=== PATIENT | male | born 1935 | race Hispanic/Latino ===

== ENCOUNTER 2017-12-05 08:13 | Outpatient (CLI) | payer MEDICARE, BC | END 2017-12-05 08:14 | disposition home or self-care (01) | LOC: BICMAMMO 08:13 | PROVIDERS: ATTEND Family Medicine | DX: N64.4 Mastodynia (principal) | CPT/HCPCS: 77066; G0279 ==

== ENCOUNTER 2019-07-23 08:50 | Outpatient (CLI) | payer MEDICARE, BC ==
--- NOTE | 2019-07-23 09:24 | ULT ---
US Renal Bilateral STANDARD HISTORY: Renal failure FINDINGS: The right kidney measures 11.1 cm in length and the left kidney measures 10.4 cm in length. No hydronephrosis is seen on either side. There is a 1 cm cyst in the left kidney. The urinary bladder is not satisfactory distended. IMPRESSION: Left renal cyst.
== END 2019-07-23 08:51 | disposition home or self-care (01) ==
LOC: BICULT 08:50
PROVIDERS: ATTEND Internal Medicine Nephrology
DX: N18.4 Chronic kidney disease, stage 4 (severe) (principal); N28.1 Cyst of kidney, acquired
CPT/HCPCS: 76770

== ENCOUNTER 2020-01-16 14:28 | Emergency (ER) | payer MEDICARE, BC ==
[2020-01-16] MEDS ORDERED: Adacel (T-DAP) 0.5 ML SYRINGE ONE (15:08)
== END 2020-01-16 15:33 | disposition home or self-care (01) ==
LOC: ERS 14:28
DX: S51.811A Laceration without foreign body of right forearm, initial encounter (principal); E11.9 Type 2 diabetes mellitus without complications; E78.5 Hyperlipidemia, unspecified; E78.00 Pure hypercholesterolemia, unspecified; I10 Essential (primary) hypertension; Z87.891 Personal history of nicotine dependence; Z79.899 Other long term (current) drug therapy; W01.0XXA Fall on same level from slipping, tripping and stumbling without subsequent striking against object, initial encounter
CPT/HCPCS: 90715; 99282

== ENCOUNTER 2020-02-02 09:14 | Observation (INO) | payer MEDICARE, BC ==
[2020-02-02 10:09] LABS: #Lymphocytes 1.2 thou/uL (1.20-3.40); #Monocytes 0.5 thou/uL (0.11-0.59); #Neutrophils 3.8 thou/uL (1.40-6.50); %Basophils 0.2 % (0.0-1.0); %Eosinophils 0.6 % (0.0-10.0); %Lymphocytes 21.7 % (21.0-51.0); %Monocytes 8.7 % (0.0-10.0); %Neutrophils 68.9 % (42.0-75.0); Hemoglobin 8.2 g/dL (14.0-18.0); Mean Corpuscular HGB CONC 35.2 g/dL (32.0-36.0); Mean Corpuscular Hemoglobin 31.1 pg (27.0-31.0); Mean Corpuscular Volume 88.5 fL (78.0-98.0); Mean Platelet Volume 7.6 fL (7.4-10.4); Platelet Count 144 thou/uL (130-400); RBC Distribution Width 11.9 % (11.5-14.5); Red Blood Cell (RBC) Count 2.63 mill/uL (4.70-6.10); White Blood Cell (WBC) Count 5.5 thou/uL (4.8-10.8)
--- NOTE | 2020-02-02 10:09 | RAD ---
PORTABLE CHEST: HISTORY: Weakness. COMPARISON: 12/06/2016. FINDINGS: The lungs are clear. No infiltrate or vascular congestion. Heart size is normal. Scattered calcifi ed granuloma again noted. Osseous structures unremarkable. IMPRESSION: No acute process. No interval change from prior exam. POS: AGW
[2020-02-02 10:31] LABS: Albumin 3.3 g/dL (3.4-4.8); Anion Gap 15 mmol/L (10-20); BUN (Urea Nitrogen) 35 mg/dL (8.4-25.7); Bilirubin, Total 0.5 mg/dL (0.2-1.2); Calc. Creatinine Clearance 0 mL/min (70-130); Calcium 7.2 mg/dL (7.8-10.44); Carbon Dioxide 16 mmol/L (23-31); Chloride 108 mmol/L (98-107); Estimated GFR-MDRD 30; Globulin 4.1 g/dL (2.4-3.5); Glucose 131 mg/dL (83-110); Protein, Total 7.4 g/dL (5.8-8.1); Sodium 136 mmol/L (136-145)
[2020-02-02 10:31] LABS: Bilirubin Negative (Negative); Blood, Urine 2+ (Negative); Clarity Clear (Clear); Glucose, Urine (Dipstick) Normal (Negative); Leukocyte 25 Leu/uL (Negative); Nitrite Negative (Negative); Protein, Urine (Dipstick) 200 mg/dL (Neg-Trace); Squamous Epithelial 0-3 HPF (0-3); Urobilinogen Normal mg/dL (Less than 2)
[2020-02-02 10:32] LABS: ALT (SGPT) 27 U/L (8-55); AST (SGOT) 20 U/L (5-34); Alkaline Phosphatase 65 U/L (40-110); CK (CPK) 57 U/L (30-200)
[2020-02-02 10:43] LABS: Bacteria/HPF 3+ HPF (None Seen)
[2020-02-02] MEDS ORDERED: cefTRIAXone\\ROCEPHIN 1 GM VIAL ONE (11:05)
[2020-02-02] MEDS ORDERED: Potassium Chloride 40 MEQ in Sodium Chloride 0.9% 250 ML 250 ML IVPB SCH (11:15)
[2020-02-02] MEDS ORDERED: Bisacodyl 5 MG TAB PO PRN (11:34)
[2020-02-02] MEDS ORDERED: Acetaminophen 325 MG TAB PO PRN (11:34)
[2020-02-02] MEDS ORDERED: Senokot S 8.6-50 MG TAB PO PRN (11:34)
[2020-02-02] MEDS ORDERED: Ondansetron PF 4 MG/2 ML Vial IVP PRN (11:34)
[2020-02-02] MEDS ORDERED: cefTRIAXone\\ROCEPHIN 1 GM in Sodium Chloride 0.9% 100 ML IVPB SCH (11:45)
[2020-02-02 14:05] VITALS: BMI 19.0
[2020-02-02] MEDS ORDERED: Potassium Citrate 10 MEQ TAB PO SCH (16:00)
[2020-02-02] MEDS ORDERED: Calcium Gluc 4.6 MEQ/10 ML (100 MG/ML) SLOW IVP ONE (16:00)
[2020-02-02 16:08] LABS: Troponin I 0.027 ng/mL (< 0.028)
[2020-02-02] MEDS ORDERED: Calcium Gluconate 4.6 MEQ in Sodium Chloride 0.9% 100 ML IVPB SCH (16:15)
--- NOTE | 2020-02-02 16:26 | HP ---
CHIEF COMPLAINT: Weakness. HISTORY OF PRESENT ILLNESS: An 84-year-old male with history of diabetes, hypertension, hyperlipidemia, had one week of weakness and shortness of breath. He usually walks around with a cane at home and that ambulation become more limited now. is at bedside. She is able to give me some information. The patient is alert, oriented, but appears quite weak. Initial workup here, troponin negative , chest x-ray negative, no temperature, no elevated white count. However, urine shows signs of infection. REVIEW OF SYSTEMS: Complete review of systems not obtainable directly from the patient. However, states that he did not have any fever, productive cough , or complain of chest pain. No risk for exposure to COVID. Pretty much they stayed at home. No nausea, vomiting, abdominal pain, constipation, diarrhea, hematuria, dysuria. No headache or blurriness. ALLERGIES: HE HAS NO KNOWN DRUG ALLERGY. MEDICAL HISTORY: Diabetes, hypertension, hyperlipidemia. History of diverticulitis and prostatitis. SURGICAL HISTORY: Polypectomy in 2012. FAMILY HISTORY: Diabetes and father at the age 79. SOCIAL HISTORY: Quit smoking 20 years ago. Occasional social drinks. Lives with his . He has a son and two daughters. MEDICATIONS: 1. Januvia 100 mg daily. 2. Calcitriol 0.25 mcg daily. 3. Lovastatin 1 tablet daily, unknown dose. PHYSICAL EXAMINATION: VITAL SIGNS: Temperature 98.7, pulse 56, blood pressure 135/78. GENERAL: The patient looks quite fatigued, but alert and oriented, does not appear to be toxic. HEENT: Pupils equal, round, and reactive to light. Anicteric. Mucous membranes moist. CARDIOVASCULAR: Regular rate and rhythm without murmurs, rubs, or gallops. LUNGS: Clear to auscultation bilaterally without wheezing, rales, or rhonchi. ABDOMEN: Soft, nontender, nondistended. Good bowel sounds. EXTREMITIES: Without any pitting edema. NEUROLOGIC: No focal deficits. LABORATORY DATA: CBC, hemoglobin 8.2, otherwise rest of the panel okay. BMP panel with potassium of 3.0, creatinine of 2.12. Liver function test in the normal range. IMPRESSION AND PLAN: An 84-year-old male with history of diabetes and hypertension, presenting with the followin. Urinary tract infection without sepsis. 2. Hypokalemia. 3. Chronic kidney disease stage 4 with a baseline creatinine of 2.05 to 2.12. 4. Hypocalcemia. 5. Debilitation. The patient is admitted for above. We will follow the blood and urine culture. Empiric ceftriaxone and follow the culture. Potassium has been replaced. We will also check magnesium level. CKD3 Hypocalcemia and the patient has normocytic anemia and his alkaline phosphatase is in the normal range. His TSH is in the normal range. We will supplement the calcium for now. We will also check his PTH and vitamin D level. Debilitation and weakness due to urinary tract infection and age. Physical therapy consult. The patient lives at home. Based on physical therapy recommendation, home health versus rehab upon discharge. Job ID: [id number] [facility]ENTER[facility]
[2020-02-02] MEDS ORDERED: Magnesium Sulfate 3 GM in Sodium Chloride 0.9% 100 ML IVPB SCH (17:15)
[2020-02-02] MEDS: NS 0.9% w/ 40 MEQ KCL 100 ML IV SCH ×5 (17:27→21:05)
[2020-02-02] MEDS: Atorvastatin Calcium 10 MG TAB PO SCH (21:19)
[2020-02-02] MEDS ORDERED: ALPRAZolam 0.25 MG TAB PO SCH (21:30)
[2020-02-02] MEDS: NS 0.9% w/ 40 MEQ KCL 1,000 ML IV SCH (21:43)
[2020-02-03] MEDS: NS 0.9% w/ 40 MEQ KCL 1,000 ML IV SCH (03:47)
[2020-02-03 04:16] LABS: #Lymphocytes 0.9 thou/uL (1.20-3.40); #Monocytes 0.4 thou/uL (0.11-0.59); #Neutrophils 2.3 thou/uL (1.40-6.50); %Basophils 0.4 % (0.0-1.0); %Eosinophils 1.2 % (0.0-10.0); %Lymphocytes 25.3 % (21.0-51.0); %Monocytes 11.5 % (0.0-10.0); %Neutrophils 61.7 % (42.0-75.0); Hemoglobin 6.6 g/dL (14.0-18.0); Mean Corpuscular HGB CONC 33.5 g/dL (32.0-36.0); Mean Corpuscular Hemoglobin 30.1 pg (27.0-31.0); Mean Corpuscular Volume 89.9 fL (78.0-98.0); Mean Platelet Volume 7.1 fL (7.4-10.4); Platelet Count 111 thou/uL (130-400); RBC Distribution Width 11.9 % (11.5-14.5); White Blood Cell (WBC) Count 3.7 thou/uL (4.8-10.8)
[2020-02-03 04:32] LABS: Anion Gap 12 mmol/L (10-20); BUN (Urea Nitrogen) 30 mg/dL (8.4-25.7); Calc. Creatinine Clearance 24 mL/min (70-130); Calcium 6.9 mg/dL (7.8-10.44); Carbon Dioxide 14 mmol/L (23-31); Chloride 111 mmol/L (98-107); Estimated GFR-MDRD 32; Glucose 187 mg/dL (83-110); Potassium 3.9 mmol/L (3.5-5.1); Sodium 133 mmol/L (136-145)
[2020-02-03] MEDS: Calcitriol 0.25 MCG CAP PO SCH (08:58)
[2020-02-03] MEDS: Alogliptin 6.25 MG TAB PO SCH (08:58)
[2020-02-03] MEDS ORDERED: Pioglitazone HCl 15 MG TAB PO SCH (09:00)
[2020-02-03] MEDS ORDERED: Lisinopril 5 MG TAB PO SCH (09:00)
[2020-02-03 09:04] LABS: Hemoglobin 7.5 g/dL (14.0-18.0)
--- NOTE | 2020-02-03 10:34 | EKG ---
Test Reason : Blood Pressure : / mmHG Vent. Rate : 069 BPM Atrial Rate : 069 BPM P-R Int : 160 ms QRS Dur : 082 ms QT Int : 432 ms P-R-T Axes : 079 068 050 degrees QTc Int : 462 ms Normal sinus rhythm Normal ECG Confirmed by CESIA AYOUB DO ([id number]), index editor MICHELE GAINES ([id number] on 02/03/2020 10:34:26 AM Referred By: Confirmed By:CESIA AYOUB DO
[2020-02-03] MEDS ORDERED: cefTRIAXone\\ROCEPHIN 1 GM in Sodium Chloride 0.9% 100 ML IVPB SCH (12:00)
--- NOTE | 2020-02-03 13:07 | PDOC.HOSPP ---
- Subjective Encounter Date: 02/03/20 Encounter Time: 10:00 Subjective: pt still looks fatigued, getting blood for low Hgb, FOBT neg., no bleed o/n. renal abnormalities. prefers to take him home, when able, no rehab but wants home PT. - Objective Vital Signs & Weight: Vital Signs (12 hours) Temp Pulse Pulse Resp BP BP Pulse Ox 02/03/20 11:41 97.9 F 58 L 58 L 18 164/74 H 164/74 H 99 02/03/20 11:09 65 02/03/20 09:03 97.7 F 60 18 155/72 H 100 02/03/20 08:40 97.7 F 61 18 158/74 H 100 02/03/20 07:53 97.7 F 65 20 163/73 H 100 02/03/20 03:44 98.3 F 58 L 18 165/80 H 95 Weight Weight 132 lb 8 oz I&O: 02/02/20 02/03/20 02/04/20 06:59 06:59 06:59 Intake Total 2246 350 Output Total 1500 Balance 746 350 Result Diagrams: 02/03/20 08:55 02/03/20 03:48 Additional Labs: Accuchecks 02/03/20 10:15 POC Glucose 149 H Hospitalist ROS - Medication Medications: Active Medications Generic Name Dose Route Start Last Admin Trade Name Freq PRN Reason Stop Dose Admin Alogliptin Benzoate 6.25 mg 02/03/20 09:00 02/03/20 08:58 Alogliptin PO 6.25 mg DAILY HEYDI Administration Atorvastatin Calcium 10 mg 02/02/20 21:00 02/02/20 21:19 Lipitor PO 10 mg HS HEYDI Administration Calcitriol 0.25 mcg 02/03/20 09:00 02/03/20 08:58 Rocaltrol PO 0.25 mcg DAILY HEYDI Administration Ceftriaxone Sodium 1 gm/ 100 mls @ 200 mls/hr 02/03/20 12:00 02/03/20 11:50 Sodium Chloride IVPB 100 mls 1200 HEYDI Administration Potassium Chloride/Sodium Chloride 1,000 mls @ 100 mls/hr 02/02/20 21:45 03:47 Ns 0.9% W/ 40 Meq Kcl IV 1,000 mls .Q10H HEYDI Administration Lisinopril 5 mg 02/03/20 09:00 02/03/20 11:09 Zestril PO Not Given DAILY HEYDI - Exam General Appearance: awake alert, ill appearing Eye: PERRL ENT: normocephalic atraumatic Neck: supple Heart: RRR Respiratory: CTAB, normal chest expansion, no tachypnea Gastrointestinal: normal bowel sounds Neurological: no focal deficits Psychiatric: A&O x 3 Hosp A/P - Plan UTI - urine and bl cx neg so far -cw ctx Hypokalemia -resolved HyperPTH Hypocalcemia Vitamin D def'y CKD 4 -- supplement ca/vit D --Dr. Melendez follows him as outpt. --renal c/s Anemia of kidney dz -s/p 1 unit prbc Mild hyponatremia --getting blood products --still low in am, will address Debilitation -PT/OT - prefers to take him home, when able, no rehab but wants home PT. -CM c/s placed.
[2020-02-03 15:00] LABS: Hemoglobin 8.6 g/dL (14.0-18.0)
[2020-02-03] MEDS: Calcium Carbonate 500 MG TAB PO SCH (17:40)
[2020-02-03] MEDS ORDERED: Dextrose 5% in Water 1,000 ML IV PRN (18:04)
[2020-02-03] MEDS ORDERED: Insulin Regular 300 UNITS/3 ML VIAL SC PRN (18:04)
[2020-02-03] MEDS ORDERED: Dextrose 50% Abboject 50 ML SYRINGE IVP PRN (18:04)
[2020-02-03] MEDS: Atorvastatin Calcium 10 MG TAB PO SCH (20:25)
[2020-02-04 07:44] VITALS: BP 166/77; TEMP 98.1
[2020-02-04] MEDS: Calcitriol 0.25 MCG CAP PO SCH (08:10)
[2020-02-04] MEDS: Calcium Carbonate 500 MG TAB PO SCH (08:10)
[2020-02-04] MEDS: Alogliptin 6.25 MG TAB PO SCH (08:10)
--- NOTE | 2020-02-04 09:06 | CON ---
DATE OF CONSULTATION: HISTORY OF PRESENT ILLNESS: Mr. Rod is an 84-year-old male with history of chronic renal failure from diabetic nephropathy and he was admitted for generalized malaise. He was diagnosed to have UTI and has currently been started on IV antibiotics. This morning, he is feeling a little better. We are being consulted for his chronic renal failure. The patient was last encountered [facility]. At that time, his creatinine was noted at 2.68. His baseline creatinine is about 2.1. He was encouraged at that time to increase his fluid intake. REVIEW OF SYSTEMS: Positive for generalized malaise, history of decreased visual acuity, occasional dysuria. No chest pain, no shortness of breath. Appetite and energy level are excellent. No headache. No diplopia. No fever or chills. No abdominal pain. No hematochezia. No melena. No hematemesis. Positive for joint pains. No new skin rash. MEDICATIONS: The patient is currently on the following medications. He was on lisinopril, but this was discontinued. In addition, he is on Lipitor at 10 mg at bedtime, alogliptin 6.25 mg p.o. daily, calcitriol 0.25 mcg tablet daily, Os-Александр 500 mg p.o. b.i.d., ceftriaxone 1 g IV daily, Humulin R sliding scale. PAST MEDICAL HISTORY: 1. 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 2. Type 2 diabetes mellitus, status post prostatitis. 3. Recent diagnosis of UTI. 4. Hyperlipidemia. 5. Status post diverticulitis. PAST SURGICAL HISTORY: Status post right breast excision-benign findings, status post bilateral cataract surgery, status post appendectomy, status post colonoscopy. SOCIAL HISTORY: The patient is . Lives in [place], one child. Retired [employer] worker. No formal schooling. Alcohol, none. No IV drug abuse. No blood transfusions. Smoked for at least 25 years, 1/2 pack a day, but currently not smoking. Sedentary lifestyle. ALLERGIES: NONE. TRAUMA: None. IMMUNIZATIONS: Up to date. HOSPITALIZATION: Please see past medical history. FAMILY HISTORY: No family history of ESRD. PHYSICAL EXAMINATION: VITAL SIGNS: Blood pressure is noted at 166/77, heart rate 64, respiratory rate is 17, temperature 98.1, O2 saturation 99%. GENERAL: Noted to be awake, alert, comfortable, not in overt distress. SKIN: Adequate turgor. HEENT: He has slightly pale conjunctivae. Anicteric sclerae. NECK: No neck mass. No carotid bruits. No JVD. CHEST: No deformities. LUNGS: Clear breath sounds. HEART: Normal sinus rhythm. No murmur. No gallops. No rubs. ABDOMEN: Globular, soft, nontender, no masses. EXTREMITIES: No edema, no deformities. LABORATORY DATA: February 03, 2020, , hemoglobin is 8.6. February 02, 2020, hemoglobin was 8.2. Sodium 133, potassium 3.9, chloride 111, carbon dioxide 14, BUN 30, creatinine 2.01, calcium 6.9, magnesium 1.6. Chest x-ray of February 02, 2020, shows no acute process. ASSESSMENT AND PLAN: 1. Chronic renal failure. This is secondary to diabetic nephropathy. His creatinine compared to several days ago has slightly improved from 2.25 to most recent value of 2.01. He may have a prerenal component. He was noted to be anemic and was ordered to have a blood transfusion. The blood transfusion may have improved the patient's renal function. In addition, his lisinopril has been discontinued as well as he was given IV volume repletion. The higher creatinine may be superimposed hemodynamically-mediated renal dysfunction-acute kidney injury on top of his chronic renal failure from diabetic nephropathy. 2. Anemia, currently status post blood transfusion, clinically improved. 3. Urinary tract infection, currently on IV antibiotics. Once the UTI is much improved, consider restarting this patient on Epogen. 4. There is no indication for any emergent dialysis with this patient. Thank you for the consult. We will continue to follow. Job ID: [id number]
--- NOTE | 2020-02-04 13:04 | DIS ---
DATE OF ADMISSION: 02/02/2020 DATE OF DISCHARGE: 02/04/2020 DISCHARGE DIAGNOSES: 1. Urinary tract infection. Urine culture negative. 2. Hypokalemia that has resolved. 3. Hyperparathyroidism. 4. Hypocalcemia. 5. Vitamin D deficiency. 6. Chronic kidney disease, stage 4. 7. Anemia of kidney disease, status post 1 unit RBC transfusion. 8. Mild hyponatremia. 9. Debilitation. 10. Hypertension DISCHARGE MEDICATIONS: Continue with his original home medications of; 1. Sodium bicarbonate 650 mg t.i.d. 2. Januvia 100 mg daily. 3. Lovastatin 40 mg daily. 4. Calcitriol 0.25 mcg p.o. daily. New prescriptions are; 1. Calcium carbonate 500 mg twice a day. 2. Keflex 250 mg twice a day for 5 days. 3. Norvasc 5 mg b.i.d. PHYSICAL EXAMINATION: VITAL SIGNS: On the day of discharge, temperature 98.1, pulse 64, blood pressure 166/77, saturating 99% on room air. GENERAL: The patient is alert and oriented. He is at his baseline. He does look debilitated. CARDIOVASCULAR: Regular rate and rhythm without murmurs, rubs, or gallops. LUNGS: Clear to auscultation bilaterally without wheezing, rales, or rhonchi. ABDOMEN: Soft, nontender, nondistended. Good bowel sounds. EXTREMITIES: No pitting edema. . at bedside. Discharge plan discussed and they are quite anxious to go home today. 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 HOSPITAL COURSE: An 84-year-old male, presented with urinary tract infection, hypokalemia, and quite debilitated. His hemoglobin initially was 8.2, however, it has dropped. Occult blood test was negative. He did receive a unit of blood and his current hemoglobin is 8.6 on the day of discharge. Urine culture did not grow any organisms. Blood culture is also negative. Again, occult blood test is negative. This drop in hemoglobin may be due to dilutional as he has received IV fluids. TSH is in the normal range; however, his PTH is 699.2 and his vitamin D also on the low side at 7.4 as well as calcium 6.9. The patient is on calcitriol. Because of these abnormalities, I have consulted Dr. Werner, who has been following him as outpatient. The patient had an appointment today at around 10:40, he will reschedule to go and see him. Dr. Werner did visit him today on the day of discharge and he is ok to start him on supplements and expect the patient to follow up. The patient's blood pressure is little elevated. P.r.n. and on the day of discharge, low-dose Norvasc has been given. The patient is clinically stable to go home today. Though, he would benefit with a transient rehab, both the patient and prefer to go home. DISCHARGE INSTRUCTIONS: Activity, as tolerated. Renal diet. Follow up with PCP in 1 week. Follow up with Dr. Werner in 1 to 2 weeks. Discharge time took over 35 minutes. Job ID: [id number] MTDD
== END 2020-02-04 10:49 | disposition home or self-care (01) ==
LOC: ERS 09:14 → 2NO 11:40
PROVIDERS: ADMIT Internal Medicine; ATTEND Internal Medicine
DX: N39.0 Urinary tract infection, site not specified (principal); E87.6 Hypokalemia; E21.3 Hyperparathyroidism, unspecified; E55.9 Vitamin D deficiency, unspecified; I12.9 Hypertensive chronic kidney disease with stage 1 through stage 4 chronic kidney disease, or unspecified chronic kidney disease; E11.21 Type 2 diabetes mellitus with diabetic nephropathy; E11.22 Type 2 diabetes mellitus with diabetic chronic kidney disease; N18.4 Chronic kidney disease, stage 4 (severe); D63.1 Anemia in chronic kidney disease; E87.1 Hypo-osmolality and hyponatremia; E78.5 Hyperlipidemia, unspecified; E78.00 Pure hypercholesterolemia, unspecified; R53.81 Other malaise; Z87.891 Personal history of nicotine dependence; Z79.84 Long term (current) use of oral hypoglycemic drugs; Z79.899 Other long term (current) drug therapy
CPT/HCPCS: 36430; 71045; 80048; 82274; 82306; 82550; 82962 ×2; 83735 ×2; 83970; 84484 ×2; 85014; 85018; 85025; 86850; 86900; 86901; 86920; 87040; 87086; 93005; 96365; 96368; 97116; 97139 ×3; 99285; P9016; 36415; 36416; 80053; 81003; 81015; 84443; 96366; 96367; G0378; J0696; J1815; J3475; J3480; J3490; J7050

== ENCOUNTER 2020-03-27 17:41 | Inpatient (IN) | payer MEDICARE, BC, OTHER ==
[2020-03-27 18:17] LABS: #Lymphocytes 0.2 thou/uL (1.20-3.40); %Basophils 0.3 % (0.0-1.0); %Eosinophils 0.8 % (0.0-10.0); %Lymphocytes 4.7 % (21.0-51.0); %Monocytes 1.3 % (0.0-10.0); Mean Corpuscular HGB CONC 32.7 g/dL (32.0-36.0); Mean Corpuscular Hemoglobin 30.2 pg (27.0-31.0); Mean Corpuscular Volume 92.5 fL (78.0-98.0); Mean Platelet Volume 8.6 fL (7.4-10.4); Platelet Count 118 thou/uL (130-400); RBC Distribution Width 12.1 % (11.5-14.5); Red Blood Cell (RBC) Count 2.31 mill/uL (4.70-6.10); White Blood Cell (WBC) Count 3.2 thou/uL (4.8-10.8)
--- NOTE | 2020-03-27 18:31 | RAD ---
Chest one view HISTORY: Hyperglycemia. Weakness. COMPARISON: 02/02/2020. FINDINGS: Cardiac silhouette is magnified by projection. Pulmonary vasculature is unremarkable. Lungs are hyperinflated. Mediastinum is midline. Calcified granulomata are consistent with healed granulomatous disease. Lung markings extend beyond t he skinfold at the right chest that mimics a pneumothorax. IMPRESSION : No active cardiopulmonary abnormalities are demonstrated.
[2020-03-27 18:40] LABS: ALT (SGPT) 16 U/L (8-55); AST (SGOT) 20 U/L (5-34); Alkaline Phosphatase 66 U/L (40-110); Anion Gap 17 mmol/L (10-20); BUN (Urea Nitrogen) 36 mg/dL (8.4-25.7); Bilirubin, Total 0.7 mg/dL (0.2-1.2); Calc. Creatinine Clearance 0 mL/min (70-130); Calcium 7.8 mg/dL (7.8-10.44); Carbon Dioxide 14 mmol/L (23-31); Chloride 103 mmol/L (98-107); Estimated GFR-MDRD 32; Globulin 3.8 g/dL (2.4-3.5); Glucose 216 mg/dL (83-110); Protein, Total 6.8 g/dL (5.8-8.1); Sodium 130 mmol/L (136-145)
[2020-03-27 18:58] LABS: Magnesium 1.2 mg/dL (1.6-2.6)
[2020-03-27] MEDS ORDERED: cefTRIAXone\\ROCEPHIN 2 GM VIAL ONE (19:17)
[2020-03-27] MEDS ORDERED: Acetaminophen 500 MG TAB ONE (19:20)
[2020-03-27 19:33] LABS: Bacteria/HPF None Seen HPF (None Seen); Bilirubin Negative (Negative); Blood, Urine 2+ (Negative); Clarity Clear (Clear); Glucose, Urine (Dipstick) 200 mg/dL (Negative); Ketone, Urine Negative (Negative); Leukocyte Negative Leu/uL (Negative); Nitrite Negative (Negative); Protein, Urine (Dipstick) 70 mg/dL (Neg-Trace); RBC/HPF 21-50 HPF (0-3); Specific Gravity, Urine 1.011 (1.002-1.036); Squamous Epithelial None Seen HPF (0-3); Urobilinogen Normal mg/dL (Less than 2); WBC/HPF 0-3 HPF (0-3); pH, Urine 5.5 (5.0-9.0)
[2020-03-27] MEDS ORDERED: Acetaminophen 650 MG Suppository ONE (19:42)
[2020-03-27] MEDS ORDERED: Vancomycin 1 GM/200 ML BAG ONE (19:44)
[2020-03-27 21:26] LABS: Troponin I 0.246 ng/mL (< 0.028)
[2020-03-27] MEDS ORDERED: Acetaminophen 325 MG TAB PO PRN (21:37)
[2020-03-27] MEDS ORDERED: Insulin Regular 300 UNITS/3 ML VIAL SC PRN (21:41)
[2020-03-27] MEDS ORDERED: Dextrose 5% in Water 1,000 ML IV PRN (21:41)
[2020-03-27] MEDS ORDERED: Dextrose 50% Abboject 50 ML SYRINGE SLOW IVP PRN (21:41)
[2020-03-27 22:09] LABS: Lactic Acid 7.7 mmol/L (0.5-2.2)
--- NOTE | 2020-03-27 23:13 | CT ---
CT abdomen and pelvis noncontrast CT chest noncontrast HISTORY: Fever. Pain. FINDINGS: Calcified granulomata throughout the chest and abdomen are consistent with healed granuloma tous disease. Lungs are slightly hyperinflated with scattered areas of parenchymal scarring. No lobar consolidation or pleural fluid. Each renal collecting system, ureter, and urinary bladder are decompressed without stone evident. Prominent degenerative changes throughout the thoracolumbar spine. Metallic clips from prior surgery in the right lower quadrant. Lack of contrast and motion limit evaluation of the soft tissues. Centered within the right upper jaky drant, a heterogeneous irregular shaped predominantly low density mass is 7.9 cm x 8.2 cm x 6.2 cm greatest diameters. It is at the expected location of the pancreatic head and duodenum. There is sugg estion of significant thickening of the parada of the adjacent bowel. No evidence of bowel obstruction. Small amount of free fluid within the pelvis. IMPRESSION : Large heterogeneous soft tissue density mass in the right upper quadrant central abdomen. 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 Possible involvement of the adjacent small bowel. Exam limited without contrast.
[2020-03-28 00:50] VITALS: BMI 19.5
--- NOTE | 2020-03-28 01:32 | HP ---
REASON FOR ADMISSION: Chills. HISTORY OF PRESENT ILLNESS: This is an 84-year-old male patient who was playing cards with his friends and suddenly developed episodes of tremors associated with generalized weakness and felt very tired, lost his strength, got very cold. Otherwise, he denies any cough. No shortness of breath. No dysuria. No diarrhea. No loss of smell. No loss of taste. No recent sick contacts or travel. I did review his records. The patient was admitted to the hospital approximately 2 months ago. He was diagnosed with urinary tract infection with negative urine culture. During his stay, his anemia got worse. He received 1 unit of blood. At the time of the discharge, he was referred to Nephrology. PAST MEDICAL HISTORY: 1. Chronic kidney disease, stage 4. 2. Anemia of chronic kidney disease. 3. High blood pressure. 4. Diabetes. 5. High cholesterol. 6. Diverticulitis. 7. Prostatitis. 8. Post polypectomy. FAMILY HISTORY: Positive for diabetes. SOCIAL HISTORY: He quit smoking 20 years ago. He drinks socially. PHYSICAL EXAMINATION: GENERAL: He is awake, alert, oriented, does not appear in distress. Continues to be cold. VITAL SIGNS: His blood pressure is 149/76, heart rate of 125, temperature is 100.6, saturating 99% on room air. HEENT: Head is nontraumatic, normocephalic. Pupils are equal and reactive. Extraocular movements are intact. Nonicteric sclerae. Well-injected conjunctivae. Oral mucosa normal. Nasal mucosa normal. NECK: Supple. No adenopathy. No murmur. Thyroid is not palpable. Trachea is midline. No supraclavicular adenopathy. HEART: S1, S2 regular. No murmur. No gallops. No friction rubs. No displacement of PMI. LUNGS: Clear to auscultation bilaterally. No wheezes. No rhonchi. No crackles. ABDOMEN: Bowel sounds are positive. Nontender abdomen. No hepatosplenomegaly. EXTREMITIES: No lower extremity edema. No cyanosis. NEURO: Cranial nerves 2 through 12 within normal limits. Normal motor function. Normal sensory function. Normal reflexes. LABORATORY DATA: Blood work shows WBC of 3.2, hemoglobin of 7, previous hemoglobin 8.6, platelets of 118, previous platelets 111, neutrophil count 93%. Sodium 130, potassium of 4, BUN 36, creatinine of 2.02, glucose 216, lactic acid 5.1, magnesium 1.2. Troponin 0.08 initially, repeat check 0.246. Urinalysis does not show any evidence of infection. It does show 21-50 red blood cell. Chest x-ray shows no active disease. ASSESSMENT AND PLAN: This is an 84-year-old male patient who is presenting with episode of tremors, increased temperature, tachycardia. He does feel better now but does present as he is having bacteremia, and source remains unknown. He is urinating quite a bit, but his urine does not reflect any evidence of infection. ID. The patient did receive vancomycin and Rocephin in the ER. Since we do not know the source of his infection, I would cover him empirically with Rocephin since he is frail and has multiple comorbidities, awaiting his initial blood culture results. For his tachycardia, he will be on gentle fluid hydration. For his diabetes, he will be on insulin sliding scale. For his kidney function, we will continue to monitor it on a daily basis. For his abnormal troponin, we will continue to cycle his cardiac enzymes. This could be due to demand ischemia. I did review his EKG, and it shows nonspecific ST-segment changes in inferolateral leads compared to previous. For DVT prophylaxis, he will be on SCDs and heparin subcutaneously. We will recheck his lactic acid, and we will replace his magnesium. I did discuss with him his code status. He wishes to be a full code. We are still awaiting for his COVID-19 rapid test results. Job ID: [id number]
[2020-03-28 02:24] LABS: Band 45 % (5-11); Hemoglobin 6.8 g/dL (14.0-18.0); Lymphocytes 4 % (21-51); MDiff Complete? YES; Mean Corpuscular HGB CONC 34.4 g/dL (32.0-36.0); Mean Corpuscular Hemoglobin 31.6 pg (27.0-31.0); Mean Corpuscular Volume 91.9 fL (78.0-98.0); Metamyelocyte 2 % (0-0); Monocytes 1 % (0-10); Neutrophil 47 % (42-75); Platelet Count 95 thou/uL (130-400); Platelet Morphology Comment Appears Decreased; RBC Distribution Width 12.2 % (11.5-14.5); Red Blood Cell (RBC) Count 2.16 mill/uL (4.70-6.10); Reflex for Review?? NO
[2020-03-28 02:32] LABS: Anion Gap 19 mmol/L (10-20); BUN (Urea Nitrogen) 34 mg/dL (8.4-25.7); Calc. Creatinine Clearance 27 mL/min (70-130); Calcium 7.6 mg/dL (7.8-10.44); Carbon Dioxide 12 mmol/L (23-31); Chloride 105 mmol/L (98-107); Estimated GFR-MDRD 33; Glucose 101 mg/dL (83-110); Magnesium 1.2 mg/dL (1.6-2.6); Sodium 133 mmol/L (136-145)
[2020-03-28 02:39] LABS: Potassium 2.9 mmol/L (3.5-5.1)
[2020-03-28 02:39] LABS: Troponin I 0.429 ng/mL (< 0.028)
[2020-03-28] MEDS ORDERED: Electrolyte Replacement Protocol FS SCH (03:15)
[2020-03-28] MEDS: Potassium Chloride 40 MEQ in Sodium Chloride 0.9% 250 ML 250 ML IVPB SCH ×2 (04:08→10:08)
[2020-03-28] MEDS: Sodium Chloride 0.9% 1,000 ML IV SCH ×2 (04:09→17:40)
--- NOTE | 2020-03-28 05:12 | PDOC.EVN ---
Event Note - Event Note Event Note: Followed up on this patient that I already admitted. His trop continue to increase, lactate increased as well, he is hypotensive , otherwise clinically he claims he is doing much better. CT chest/ abdomen finding noted a/p : will give more fluids will recheck labs. will consult GI and cardiology, will do an echocardiogram.
[2020-03-28] MEDS ORDERED: Sodium Chloride 0.9% 1,000 ML IV SCH (05:15)
[2020-03-28] MEDS ORDERED: Magnesium Sulfate 4 GM in Sodium Chloride 0.9% 250 ML 250 ML IVPB SCH (08:15)
[2020-03-28 08:47] LABS: Lactic Acid 2.1 mmol/L (0.5-2.2)
[2020-03-28] MEDS: Calcium Carbonate 500 MG TAB PO SCH ×2 (08:52→17:24)
[2020-03-28] MEDS: Sodium Bicarbonate Tab 325 MG TAB PO SCH ×3 (08:52→20:24)
[2020-03-28] MEDS: Nystatin 500,000 UNITS/5 ML UDCUP SSW SCH ×4 (08:52→20:24)
[2020-03-28] MEDS: Calcitriol 0.25 MCG CAP PO SCH (08:52)
[2020-03-28] MEDS ORDERED: Heparin 5,000 UNITS/ML VIAL SC SCH (09:00)
[2020-03-28 09:24] LABS: Band 54 % (5-11); Dohle Bodies MODERATE; Hemoglobin 7.4 g/dL (14.0-18.0); MDiff Complete? YES; Mean Corpuscular HGB CONC 33.3 g/dL (32.0-36.0); Mean Corpuscular Hemoglobin 30.7 pg (27.0-31.0); Mean Corpuscular Volume 92.4 fL (78.0-98.0); Mean Platelet Volume 8.2 fL (7.4-10.4); Metamyelocyte 1 % (0-0); Neutrophil 45 % (42-75); Platelet Count 89 thou/uL (130-400); Platelet Morphology Comment Appears Decreased; RBC Distribution Width 12.4 % (11.5-14.5); RBC Morphology Normal; Red Blood Cell (RBC) Count 2.42 mill/uL (4.70-6.10); Toxic Granulation SLIGHT; Vacuoles MODERATE; White Blood Cell (WBC) Count 11.6 thou/uL (4.8-10.8)
--- NOTE | 2020-03-28 09:30 | PDOC.HOSPP ---
- Subjective Encounter Date: 03/28/20 Subjective: Patient reports she is feeling somewhat better this morning. Says he actually felt quite well yesterday until this event happened last night. Patient believes he has lost significant weight from his peak in the range of 230s but he was relatively unclear over what timeframe it took for him to lose that amount of weight. He does follow with Dr. Espino for anemia. His PCP, Dr. Alvarez, discontinued his diabetic medications 2 weeks ago. He reports normal bowel movements. He denies any abdominal pain. Voiding normally. - Objective Vital Signs & Weight: Vital Signs (12 hours) Temp Pulse Resp BP Pulse Ox 03/28/20 07:34 98.6 F 03/28/20 03:51 97.8 F 03/28/20 01:37 100 03/28/20 01:20 97.7 F 86 18 105/51 L Weight Weight 140 lb Most Recent Monitor Data Heart Rate from ECG 73 NIBP 97/47 NIBP BP-Mean 63 Respiration from ECG 20 SpO2 100 I&O: 03/27/20 03/28/20 03/29/20 06:59 06:59 06:59 Intake Total 1450 Output Total 400 Balance 1050 Result Diagrams: 03/28/20 08:21 03/28/20 01:47 Additional Labs: Accuchecks 03/28/20 03/27/20 06:07 18:05 POC Glucose 106 230 H Hospitalist ROS - Medication Medications: Active Medications Generic Name Dose Route Start Last Admin Trade Name Freq PRN Reason Stop Dose Admin Calcitriol 0.25 mcg 03/28/20 09:00 03/28/20 08:52 Rocaltrol PO 0.25 mcg DAILY HEYDI Administration Calcium Carbonate 500 mg 03/28/20 08:00 03/28/20 08:52 Oscal-500 PO 500 mg BID-WM HEYDI Administration Sodium Chloride 1,000 mls @ 75 mls/hr 03/27/20 21:45 03/28/20 04:09 Normal Saline 0.9% IV 1,000 mls .[id number] HEYDI Administration Potassium Chloride 40 meq/ 270 mls @ 67.5 mls/hr 03/28/20 04:00 03/28/20 04: 08 Sodium Chloride IVPB 03/28/20 11:59 270 mls 0400,0800 HEYDI Administration Magnesium Sulfate 4 gm/ Sodium 258 mls @ 129 mls/hr 03/28/20 08:15 03/28/20 08:52 Chloride IVPB 03/28/20 10:14 258 mls NOW HEYDI Administration Nystatin 500,000 units 03/28/20 09:00 03/28/20 08:52 Mycostatin SSW 500,000 units QID HEYDI Administration Sodium Bicarbonate 650 mg 03/28/20 09:00 03/28/20 08:52 Bicarbonate, Sodium PO 650 mg TID HEYDI Administration - Exam General Appearance: NAD, awake alert General - other findings: He has appeared generally thin. Eye: PERRL, anicteric sclera Neck: supple, symmetric, no JVD, no thyromegaly, no lymphadenopathy, no carotid bruit Heart: RRR, no murmur, no gallops, no rubs, normal peripheral pulses Respiratory: CTAB, no wheezes, no rales, no ronchi, normal chest expansion, no tachypnea, normal percussion Gastrointestinal: soft, non-tender, non-distended, normal bowel sounds, no palpable masses, no hepatomegaly, no splenomegaly, no bruit Extremities: no cyanosis, no clubbing, no edema Skin: normal turgor Neurological: no focal deficits Musculoskeletal: normal tone, normal strength, no muscle wasting Psychiatric: normal affect, normal behavior, A&O x 3 Hosp A/P (1) Sepsis Code(s): A41.9 - SEPSIS, UNSPECIFIED ORGANISM Status: Acute (2) Hypotension Status: Acute (3) Myocardial infarction Code(s): I21.9 - ACUTE MYOCARDIAL INFARCTION, UNSPECIFIED Status: Acute Qualifiers: Myocardial infarction type: type 2 Qualified Code(s): I21.A1 - Myocardial infarction type 2 (4) Pancytopenia Code(s): D61.818 - OTHER PANCYTOPENIA Status: Chronic (5) Abdominal mass Code(s): R19.00 - INTRA-ABD AND PELVIC SWELLING, MASS AND LUMP, UNSP SITE Status: Acute (6) Diabetes mellitus Code(s): E11.9 - TYPE 2 DIABETES MELLITUS WITHOUT COMPLICATIONS Status: Chronic (7) Hypokalemia Code(s): E87.6 - HYPOKALEMIA Status: Acute (8) Chronic kidney disease, stage IV (severe) Code(s): N18.4 - CHRONIC KIDNEY DISEASE, STAGE 4 (SEVERE) Status: Chronic (9) Hyperlipidemia Code(s): E78.5 - HYPERLIPIDEMIA, UNSPECIFIED Status: Chronic - Plan Sepsis: Source is not known. Chest x-ray was clear. Urinalysis was negative. CT chest abdomen and pelvis did not reveal a specific source of infection. Continue Rocephin. Will resume vancomycin. Follow-up cultures. Continue IV fluids. Recheck lactic acid. Hypotension: Patient historically has had significantly elevated blood pressure in the 160s range diastolic based on his previous admissions. He is on no antihypertensives. Continue with transfusions as needed. Suspect this is secondary to underlying sepsis. It does seem to be trending upward at the moment with fluid bolus this morning. Abdominal mass: Concerning for pancreatic cancer. Will need to pursue once the patient is slightly more stable. Pancytopenia: Patient apparently has some chronic anemia/pancytopenia followed by Dr. Espino. We will need to consult oncology regarding the abdominal mass at some point. Transfuse as needed. Diabetes mellitus: Patient was recently taken off of oral agents. Pancreatic lesion could certainly be accounting for some of his issues. Continue Accu-Cheks and sliding scale. Chronic kidney disease stage IV: Appears to be at his stable GFR. Myocardial infarction type II secondary to demand ischemia from hypotension: Cardiology consulted. Given his age and renal function is probably no significant intervention warranted at this point. Hypokalemia: Repletion has been ordered, we will continue to follow
[2020-03-28 09:38] LABS: Critical Call Chem Troponin I RESULT DECREASING; Troponin I 0.394 ng/mL (< 0.028)
--- NOTE | 2020-03-28 10:11 | CON ---
DATE OF CONSULTATION: HISTORY OF PRESENT ILLNESS: Mr. Rod is an 84-year-old male, admitted with acute onset of extreme weakness. He was playing cards and developed tremors from generalized weakness. He denies any fever or cough, shortness of breath, chest or abdominal discomfort. He has not had problems with smell or taste. He does have chronic anemia. He has been found to have an elevated troponin. He denies any previous cardiac problems. PAST MEDICAL HISTORY: Anemia, chronic kidney disease, weight loss of 60 to 70 pounds over the last year according to the patient, hypertension, diabetes, hypercholesterolemia, prostatitis, diverticulitis. MEDICATIONS: 1. Os-Александр 500 mg b.i.d. 2. Calcitriol 0.25 mcg daily. 3. Lovastatin, unknown dose daily. 4. Sodium bicarbonate 650 t.i.d. ALLERGIES: NONE. OPERATIONS: Appendectomy. SOCIAL HISTORY: Smoked 1 to 1-1/2 packs per day, but stopped 22 years ago. He rarely drinks. FAMILY HISTORY: Negative for coronary artery disease. REVIEW OF SYSTEMS: A 12-point review of systems is otherwise unremarkable. PHYSICAL EXAMINATION: VITAL SIGNS: Blood pressure 97/47, pulse of 73, sinus rhythm. HEENT: PERRL. NECK: Supple. CHEST: Clear. CARDIAC: S1 and S2 normal without any S3, S4, or murmurs. Carotid upstroke is normal without bruits. ABDOMEN: Normal bowel sounds without tenderness or organomegaly. EXTREMITIES: Revealed no clubbing, cyanosis, or edema. NEUROLOGIC: Grossly intact. SKIN: Warm and dry. LABORATORY DATA: EKG revealed sinus tachycardia with a rate of 107 per minute and nonspecific ST and T-wave changes. Hemoglobin 6.8, hematocrit 19.8, white count 4000, platelets 95,000. Sodium 133, potassium 2.9, chloride 105, carbon dioxide 12, BUN 34, creatinine 1.93, lactic acid 7.7. Troponin I is 0.429. CK-MB is normal. IMPRESSION: 1. Probable sepsis, on broad-spectrum antibiotics at this time. 2. Cxh-NL-umgohxlin myocardial infarction type 2. 3. 60-pound weight loss over the last year. 4. Diabetes. 5. Hypertension. 6. Hypercholesterolemia. 7. Chronic kidney disease. 8. Anemia. 9. Possible pancreatic cancer with finding of an abdominal mass on abdominal CT. 10. Hypokalemia. PLAN: With Mr. Rod' current hemoglobin and with this appearing to be non-STEMI type 2, I will discontinue the heparin. Echocardiogram will be performed to assess left ventricular function. The EKG will be repeated. Cultures have been drawn and are negative thus far. Job ID: [id number]
--- NOTE | 2020-03-28 10:33 | CON ---
DATE OF CONSULTATION: 03/28/2020 CONSULTING PHYSICIAN: Dr. Baxter. REASON FOR CONSULTATION: Sepsis. HISTORY OF PRESENT ILLNESS: The patient is an 84-year-old gentleman, who was going about his business yesterday when he began having chills, tremors, and could not walk anymore. He was subsequently brought to the emergency room and was found to be pancytopenic with profound bandemia thought to be septic. So far, the only positive finding besides his pancytopenia is a mass in the region of the pancreas. PAST MEDICAL HISTORY: 1. Chronic kidney disease stage 4. 2. Hypertension. 3. Anemia. 4. Diabetes mellitus. 5. Hyperlipidemia. 6. Diverticulitis. 7. Prostatitis. 8. History of polypectomy. PAST SURGICAL HISTORY: Colonoscopy with polypectomy. FAMILY MEDICAL HISTORY: Diabetes mellitus. SOCIAL HISTORY: Quit smoking over 20 years ago. Quit drinking back in his 40s. He is retired from [employer]. OUTPATIENT MEDICATIONS: 1. Lovastatin 1 tablet daily. 2. Calcium carbonate 500 mg b.i.d. 3. Calcitriol . 4. Sodium bicarbonate 650 mg t.i.d. Current inpatient medications reviewed. See active medication section in the chart. REVIEW OF SYSTEMS: Basically negative except for the weakness. PHYSICAL EXAMINATION: VITAL SIGNS: Temperature 98.6, pulse 75, blood pressure 105/47, O2 saturation 100%. HEENT: Unremarkable. NECK: No adenopathy or JVD. CHEST: Clear to auscultation. CARDIAC: S1 and S2 regular. ABDOMEN: He has some mild mid epigastric tenderness to deep palpation. EXTREMITIES: No clubbing, cyanosis, or edema. He has onycholysis of his toenails. LABORATORY DATA: White blood cell count 11.6, hematocrit 22.3, platelet count 89, 45% neutrophils, 54% bands. Sodium 133, potassium 2.9, chloride 105, CO2 is 12, BUN 34, creatinine 1.9, glucose 101, lactate 2.1. Troponin 0.39. Urinalysis showed red blood cells, glucose, and proteinuria. Chest x-ray shows no mass, effusion, or infiltrate. Chest CT suggested possible infiltrate in the right base, but has a definite pancreatic mass. ASSESSMENT: 1. Sepsis syndrome. 2. Chronic renal failure. 3. Metabolic acidosis - largely chronic. 4. Mass in the pancreatic head, abscess versus malignancy. RECOMMENDATION: 1. Extend antibiotic coverage. 2. GI versus General Surgery consult for further workup of the mass. 3. Check amylase, lipase, cortisol level. 4. Continue bicarbonate administration - oral should be fine. Job ID: [id number]
[2020-03-28 11:01] LABS: Lipase Less than 4 U/L (8-78)
[2020-03-28] MEDS: Piperacillin/Tazobactam 3.375 GM in Sodium Chloride 0.9% 100 ML IVPB SCH ×2 (12:39→17:24)
[2020-03-28 13:54] LABS: SARS-CoV-2 MS2 Positive; SARS-CoV-2 N Gene Negative; SARS-CoV-2 S Gene Negative; SARS-CoV-2 by NAA Not Detected (NotDetected); SARS-CoV-2 orf1ab Negative
--- NOTE | 2020-03-28 16:47 | EKG ---
Test Reason : Blood Pressure : / mmHG Vent. Rate : 076 BPM Atrial Rate : 076 BPM P-R Int : 168 ms QRS Dur : 090 ms QT Int : 470 ms P-R-T Axes : 066 063 064 degrees QTc Int : 528 ms Sinus rhythm with Premature atrial complexes with Abberant conduction Prolonged QT Abnormal ECG When compared with ECG of 27-MAR-2020 18:27, (Unconfirmed) Abberant conduction is now Present ST no longer depressed in Anterior leads Nonspecific T wave abnormality no longer evident in Inferior leads T wave inversion no longer evident in Anterolateral leads Confirmed by DR. Ashley LAMB ([id number]) on 03/28/2020 4:46:35 PM Referred By: KEIRA Confirmed By:DR. Ashley LAMB
[2020-03-28] MEDS ORDERED: cefTRIAXone\\ROCEPHIN 1 GM in Sodium Chloride 0.9% 100 ML IVPB SCH (19:00)
[2020-03-28 19:46] LABS: Potassium 4.5 mmol/L (3.5-5.1)
--- NOTE | 2020-03-28 20:21 | CON ---
DATE OF CONSULTATION: 03/28/2020 REASON FOR CONSULTATION: Pancreatic mass. CONSULTING PROVIDER: Sarkis Friedman MD HISTORY OF PRESENT ILLNESS: The patient is an 84-year-old male with past medical history of chronic kidney disease, stage 4; anemia of chronic disease; hypertension; diabetes; hyperlipidemia; diverticulitis; and prostatitis, who presented to the hospital with complaints of generalized weakness and tremor. He states that he was in his usual state of health until yesterday when playing cards with his friends he experienced a sudden onset of increased tremor, generalized weakness, and fatigue. With worsening of the symptoms, it prompted him to seek healthcare assistance at the [facility] ER. While in the ER, initial laboratory findings were consistent with a diagnosis of sepsis with a profound bandemia. The patient was ultimately admitted to the hospital for further evaluation regarding this. However, during the course of his initial evaluation, he had a noncontrast CT scan of the belly, which showed the presence of a large pancreatic head mass. Upon questioning the patient this morning, the patient states that he is doing better since being admitted to the hospital with no complaints of nausea, vomiting, fevers, chills, hematemesis, melena, hematochezia, abdominal pain, diarrhea, constipation, flushing, or rashes. During this hospitalization, he has received approximately 1 unit of PRBCs thus far and had received 1 unit of PRBCs earlier this year when admitted to the hospital for urinary tract infection. REVIEW OF SYSTEMS: A 10-category review of systems was obtained with all responses negative except for the pertinent positives as listed in HPI. PAST MEDICAL HISTORY: As per HPI. PAST SURGICAL HISTORY: Colonoscopy with polypectomy. FAMILY HISTORY: Denies any GI malignancies. SOCIAL HISTORY: Denies any tobacco, alcohol, or illicit drug use. OUTPATIENT MEDICATIONS: Reviewed. ALLERGIES: NO KNOWN DRUG ALLERGIES. PHYSICAL EXAMINATION: VITAL SIGNS: Temperature 98.2, pulse 77, blood pressure 106/51, respiratory rate 24, and saturating 100% on room air. GENERAL: The patient was lying in bed, in no acute distress. Alert and oriented x4. HEENT: Normocephalic and atraumatic. Neck is supple. No JVD or scleral icterus noted. CARDIOVASCULAR: Regular rate and rhythm with no discernable murmurs, gallops, or rubs. RESPIRATORY: Clear to auscultation bilaterally with no discernable wheezes or rales. ABDOMEN: Normoactive bowel sounds. Soft and nondistended. Mild tenderness to palpation in the midepigastric region. EXTREMITIES: No cyanosis, clubbing, or edema. LABORATORY DATA: CBC with a white blood cell count of 11.6, hemoglobin 7.4, hematocrit 22.3, and platelets 89. Chemistry with a sodium of 133, potassium 2.9, chloride 105, CO2 of 29, BUN 34, creatinine 1.93, glucose 109, and GFR of 33. LFTs on admission showed an AST of 20, ALT of 16, alkaline phosphatase of 66, and total bilirubin of 0.7. 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 However, a 7.9 x 8.2 x 6.2 cm heterogeneous mass was seen around the pancreatic head and locality near the duodenum, but could not be further characterized due to the noncontrasted examination. ASSESSMENT AND PLAN: The patient is an 84-year-old male with past medical history of anemia of chronic disease, hypertension, diabetes, hyperlipidemia, diverticulitis, prostatitis, and chronic kidney disease stage 4 with a GFR of 33, presenting with a pancreatic mass. Pancreatic mass: The patient was admitted to the hospital with acute onset of tremor, lethargy, weakness, and fatigue with initial laboratory findings consistent with a sepsis type picture with the etiology unknown at this time. However, during the course of his workup, he had a CT of the abdomen pelvis (noncontrasted), that showed the presence of a 7.9 x 8.2 x 6.2 heterogeneous mass in roughly the region of the pancreatic head and around the duodenum. 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 However, the exam was limited due to the noncontrasted study. At this time, it is unclear whether or not this pancreatic mass is contributing to his current clinical situation either from mass effect or if it is a possible abscess, although per the Radiology read at this time, it seems more likely to be a neoplasm rather than abscess. Given the fact that it is now occupying the region of the pancreatic head, evaluation with endoscopy may be limited in this regard primarily because if it is extraluminal in location, then it may not be seen with upper endoscopy alone. Usually with pancreatic masses in this region, there is further characterization with another form of imaging usually with CT pancreas protocol, which is a contrasted exam, but given the patient's significantly decreased GFR, a contrasted study with either CT or MRI is not advisable at this time. Based on the current characteristics of the mass, this would be best evaluated by endoscopic ultrasound once the patient is more stable. Due to the fact that any endoscopic procedure at this time based on his current clinical status and sepsis would be a high-risk procedure. RECOMMENDATIONS: 1. Continue to monitor the patient closely with treatment of possible etiology of his sepsis inducing bandemia. 2. Once the patient is adequately stabilized, the patient could be referred to a tertiary center that has EUS capabilities for further characterization of this mass either as an inpatient or outpatient. 3. Upper endoscopy could be attempted during this hospitalization to see if there is any intraluminal mass effect or invasion through the duodenal wall, but I would not recommend this at this time due to his concurrent diagnosis of sepsis. We will continue to follow peripherally for now. Please call with any questions. Job ID: [id number]
[2020-03-28] MEDS: Vancomycin 1 GM in Premix Bag 1 BAG IVPB SCH (20:24)
[2020-03-28] MEDS: Atorvastatin Calcium 10 MG TAB PO SCH (20:24)
[2020-03-29] MEDS: Sodium Chloride 0.9% 1,000 ML IV SCH ×2 (00:30→11:29)
[2020-03-29] MEDS: Piperacillin/Tazobactam 3.375 GM in Sodium Chloride 0.9% 100 ML IVPB SCH ×3 (02:55→20:15)
[2020-03-29] MEDS: Sodium Bicarbonate Tab 325 MG TAB PO SCH ×3 (08:27→20:20)
[2020-03-29] MEDS: Nystatin 500,000 UNITS/5 ML UDCUP SSW SCH ×4 (08:27→20:16)
[2020-03-29] MEDS: Calcitriol 0.25 MCG CAP PO SCH (08:27)
[2020-03-29] MEDS: Calcium Carbonate 500 MG TAB PO SCH ×2 (08:27→16:19)
--- NOTE | 2020-03-29 11:04 | PRG ---
DATE OF SERVICE: 03/29/2020 SUBJECTIVE: The patient is about the same. Has no acute complaints. OBJECTIVE: VITAL SIGNS: Temperature is 97.7, pulse 68, blood pressure 103/58, and O2 saturation 100%. HEENT: Remarkable bitemporal wasting. NECK: No JVD. LUNGS: Clear anteriorly. CARDIAC: S1 and S2, regular. ABDOMEN: Somewhat tender in mid epigastric region. EXTREMITIES: No clubbing, cyanosis, or edema in extremities. LABORATORY DATA: His amylase, lipase, and cortisol were all normal. ASSESSMENT: 1. Sepsis syndrome. 2. Chronic renal failure. 3. Metabolic acidosis. 4. Mass in the pancreatic head. PLAN: Agree with current care including the antibiotics, IV hydration, etc. Ultimately, he will need further investigation of his pancreatic mass. I will recheck him again on Tuesday. Job ID: [id number]
[2020-03-29] MEDS: Pancrelipase DR 12,000 1 CAP PO SCH ×2 (11:26→16:19)
[2020-03-29 12:20] LABS: Vancomycin, Trough 15.6 ug/mL
--- NOTE | 2020-03-29 12:23 | PDOC.HOSPP ---
- Subjective Encounter Date: 03/29/20 Subjective: Patient reports she is feeling okay. He is having diarrhea. Apparently has had 4-5 bowel movements already today. Nurse reports that they are not nonodorous more mucus type bowel movements. Patient denies having had any diarrhea prior to his admission here. - Objective Vital Signs & Weight: Vital Signs (12 hours) Temp Pulse Ox 03/29/20 11:18 97.8 F 03/29/20 07:37 100 03/29/20 07:28 97.7 F 03/29/20 03:51 98.4 F Weight Weight 140 lb Most Recent Monitor Data Heart Rate from ECG 62 NIBP 114/56 NIBP BP-Mean 75 Respiration from ECG 2 SpO2 100 I&O: 03/28/20 03/29/20 03/30/20 06:59 06:59 06:59 Intake Total 1450 1000 Output Total 400 253 Balance 1050 747 Result Diagrams: 03/28/20 08:21 03/28/20 19:12 Additional Labs: Accuchecks 03/29/20 03/29/20 03/28/20 10:37 05:42 20:31 POC Glucose 97 87 99 03/28/20 16:37 POC Glucose 80 Hospitalist ROS - Medication Medications: Active Medications Generic Name Dose Route Start Last Admin Trade Name Freq PRN Reason Stop Dose Admin Lipase/Protease/Amylase 1 cap 03/29/20 12:00 03/29/20 11:[address] [place] [address] PO 1 cap TID-WM HEYDI Administration Atorvastatin Calcium 10 mg 03/28/20 21:00 03/28/20 20:24 Lipitor PO 10 mg HS HEYDI Administration Calcitriol 0.25 mcg 03/28/20 09:00 03/29/20 08:27 Rocaltrol PO 0.25 mcg DAILY HEYDI Administration Calcium Carbonate 500 mg 03/28/20 08:00 03/29/20 08:27 Oscal-500 PO 500 mg BID-WM HEYDI Administration Sodium Chloride 1,000 mls @ 75 mls/hr 03/27/20 21:45 03/29/20 11:29 Normal Saline 0.9% IV 1,000 mls .[id number] HEYDI Administration Vancomycin HCl 1 gm/ Device 200 mls @ 200 mls/hr 03/28/20 20:00 03/28/20 20: 24 IVPB 200 mls 2000 HEYDI Administration Piperacillin Sod/Tazobactam 100 mls @ 200 mls/hr 03/28/20 10:00 03/29/20 08: 26 Sod 3.375 gm/ Sodium Chloride IVPB 100 mls 0200,1000,1800 HEYDI Administration Nystatin 500,000 units 03/28/20 09:00 03/29/20 11:26 Mycostatin SSW 500,000 units QID HEYDI Administration Sodium Bicarbonate 650 mg 03/28/20 09:00 03/29/20 08:27 Bicarbonate, Sodium PO 650 mg TID HEYDI Administration Sodium Chloride 10 ml 03/28/20 09:00 03/29/20 08:28 Flush - Normal Saline IVF 10 ml Q12HR HEYDI Administration - Exam General Appearance: NAD, awake alert Heart: RRR, no murmur, no gallops, no rubs, normal peripheral pulses Respiratory: CTAB, no wheezes, no rales, no ronchi, normal chest expansion, no tachypnea, normal percussion Gastrointestinal: soft, non-tender, non-distended, normal bowel sounds, no hepatomegaly, no splenomegaly, no bruit Gastrointestinal - other findings: There is an upper abdominal mass palpable. Nontender. Extremities: no cyanosis, no clubbing, no edema Skin: normal turgor Neurological: cranial nerve grossly intact, normal sensation to touch, no weakness, no focal deficits, no new deficit Musculoskeletal: normal tone, normal strength, no muscle wasting Psychiatric: normal affect, normal behavior, A&O x 3 Hosp A/P (1) Sepsis Code(s): A41.9 - SEPSIS, UNSPECIFIED ORGANISM Status: Acute (2) Hypotension Status: Acute (3) Myocardial infarction Code(s): I21.9 - ACUTE MYOCARDIAL INFARCTION, UNSPECIFIED Status: Acute Qualifiers: Myocardial infarction type: type 2 Qualified Code(s): I21.A1 - Myocardial infarction type 2 (4) Pancytopenia Code(s): D61.818 - OTHER PANCYTOPENIA Status: Chronic (5) Abdominal mass Code(s): R19.00 - INTRA-ABD AND PELVIC SWELLING, MASS AND LUMP, UNSP SITE Status: Acute (6) Diabetes mellitus Code(s): E11.9 - TYPE 2 DIABETES MELLITUS WITHOUT COMPLICATIONS Status: Chronic (7) Hypokalemia Code(s): E87.6 - HYPOKALEMIA Status: Resolved (8) Chronic kidney disease, stage IV (severe) Code(s): N18.4 - CHRONIC KIDNEY DISEASE, STAGE 4 (SEVERE) Status: Chronic (9) Hyperlipidemia Code(s): E78.5 - HYPERLIPIDEMIA, UNSPECIFIED Status: Chronic - Plan Sepsis: Source is not known. Chest x-ray was clear. Urinalysis was negative. CT chest abdomen and pelvis did not reveal a specific source of infection. Continue Rocephin. Will resume vancomycin. Blood culture growing gram- negative rods and gram-positive cocci. Continue IV fluids. 1 would suspect the upper abdominal mass may be related to this in some way. Hypotension: Patient historically has had significantly elevated blood pressure in the 160s range diastolic based on his previous admissions. He is on no antihypertensives. Continue with transfusions as needed. Suspect this is secondary to underlying sepsis. It remains relatively low but is stable. We will check a cortisol level. Abdominal mass: Concerning for pancreatic cancer. Will need to pursue once the patient is slightly more stable. Pancytopenia: Patient apparently has some chronic anemia/pancytopenia followed by Dr. Espino. We will need to consult oncology regarding the abdominal mass at some point. Transfuse as needed. Diabetes mellitus: Patient was recently taken off of oral agents. Pancreatic lesion could certainly be accounting for some of his issues. Continue Accu-Cheks and sliding scale. Currently blood sugars are very well controlled and no insulin has been required. Chronic kidney disease stage IV: Appears to be at his stable GFR. Renal dosing medications. Avoiding IV contrast. Myocardial infarction type II secondary to demand ischemia from hypotension: Cardiology consulted. Given his age and renal function is probably no significant intervention warranted at this point. Hypokalemia: Repletion has been ordered, we will continue to follow. Diarrhea: We will check C. difficile. Patient did present with sepsis without a clear source. Suspect this is more likely related to the pancreatic lesion and may represent pancreatic insufficiency. We will add Crejoan.
[2020-03-29] MEDS: Vancomycin 1 GM in Premix Bag 1 BAG IVPB SCH (20:15)
[2020-03-29] MEDS: Atorvastatin Calcium 10 MG TAB PO SCH (20:16)
[2020-03-30] MEDS: Piperacillin/Tazobactam 3.375 GM in Sodium Chloride 0.9% 100 ML IVPB SCH (02:54)
[2020-03-30] MEDS: Sodium Chloride 0.9% 1,000 ML IV SCH ×3 (02:55→17:11)
[2020-03-30 03:55] LABS: Anion Gap 13 mmol/L (10-20); BUN (Urea Nitrogen) 48 mg/dL (8.4-25.7); Calc. Creatinine Clearance 20 mL/min (70-130); Calcium 7.1 mg/dL (7.8-10.44); Carbon Dioxide 14 mmol/L (23-31); Chloride 117 mmol/L (98-107); Estimated GFR-MDRD 24; Glucose 88 mg/dL (83-110); Potassium 3.7 mmol/L (3.5-5.1); Sodium 140 mmol/L (136-145)
[2020-03-30 04:21] LABS: Band 36 % (5-11); Burr Cells MODERATE= 6-15 cells (100X) (0-1/hpf); Hemoglobin 8.3 g/dL (14.0-18.0); Lymphocytes 3 % (21-51); MDiff Complete? YES; Mean Corpuscular HGB CONC 33.8 g/dL (32.0-36.0); Mean Corpuscular Hemoglobin 31.6 pg (27.0-31.0); Mean Corpuscular Volume 93.6 fL (78.0-98.0); Mean Platelet Volume 10.1 fL (7.4-10.4); Monocytes 6 % (0-10); Neutrophil 55 % (42-75); Platelet Count 80 thou/uL (130-400); Platelet Morphology Comment Appears Decreased; RBC Distribution Width 13.4 % (11.5-14.5); Red Blood Cell (RBC) Count 2.64 mill/uL (4.70-6.10); Toxic Granulation SLIGHT; White Blood Cell (WBC) Count 24.1 thou/uL (4.8-10.8)
[2020-03-30] MEDS ORDERED: Loperamide HCl 2 MG CAP PO SCH (07:00)
[2020-03-30] MEDS: Sodium Bicarbonate Tab 325 MG TAB PO SCH ×3 (08:45→20:51)
[2020-03-30] MEDS: Nystatin 500,000 UNITS/5 ML UDCUP SSW SCH ×4 (08:46→20:51)
[2020-03-30] MEDS: Calcitriol 0.25 MCG CAP PO SCH (08:46)
[2020-03-30] MEDS: Calcium Carbonate 500 MG TAB PO SCH ×2 (08:46→16:58)
--- NOTE | 2020-03-30 09:09 | PDOC.HOSPP ---
- Subjective Encounter Date: 03/30/20 (f/u sepsis) Encounter Time: 09:07 Subjective: Pt reports he's feeling week -has been with this illness. He denies any pain. Multiple mucous-containing stools. - Objective Vital Signs & Weight: Vital Signs (12 hours) Temp 03/30/20 07:15 97.6 F 03/30/20 03:33 97.4 F L 03/29/20 23:17 98.0 F Weight Weight 140 lb Most Recent Monitor Data Heart Rate from ECG 57 NIBP 100/72 NIBP BP-Mean 81 Respiration from ECG 19 SpO2 100 I&O: 03/29/20 03/30/20 03/31/20 06:59 06:59 06:59 Intake Total 1000 1150 Output Total 253 380 Balance 747 770 Result Diagrams: 03/30/20 03:24 03/30/20 03:24 Additional Labs: Accuchecks 03/30/20 03/29/20 03/29/20 05:39 20:29 16:54 POC Glucose 82 94 100 03/29/20 10:37 POC Glucose 97 c diff testing negative EKG Reviewed by me: Yes (tele - sinus 60's, pvc's and sometimes bigeminy) Hospitalist ROS - Medication Medications: Active Medications Generic Name Dose Route Start Last Admin Trade Name Angelo PRN Reason Stop Dose Admin Lipase/Protease/Amylase 1 cap 03/29/20 12:00 03/29/20 16:19 Delfina Suero 95450 PO 1 cap TID-WM HEYDI Administration Atorvastatin Calcium 10 mg 03/28/20 21:00 03/29/20 20:16 Lipitor PO 10 mg HS HEYDI Administration Calcitriol 0.25 mcg 03/28/20 09:00 03/30/20 08:46 Rocaltrol PO 0.25 mcg DAILY HEYDI Administration Calcium Carbonate 500 mg 03/28/20 08:00 03/30/20 08:46 Oscal-500 PO 500 mg BID-WM HEYDI Administration Vancomycin HCl 1 gm/ Device 200 mls @ 200 mls/hr 03/28/20 20:00 03/29/20 20: 15 IVPB 200 mls 2000 HEYDI Administration Sodium Chloride 1,000 mls @ 100 mls/hr 03/30/20 08:25 03/30/20 08:46 Normal Saline 0.9% IV 1,000 mls .Q10H HEYDI Administration Nystatin 500,000 units 03/28/20 09:00 03/30/20 08:46 Mycostatin SSW 500,000 units QID HEYDI Administration Sodium Bicarbonate 650 mg 03/28/20 09:00 03/30/20 08:45 Bicarbonate, Sodium PO 650 mg TID HEYDI Administration Sodium Chloride 10 ml 03/28/20 09:00 03/30/20 08:46 Flush - Normal Saline IVF 10 ml Q12HR HEYDI Administration - Exam General Appearance: NAD Heart: RRR Respiratory: CTAB, no wheezes, no rales, no ronchi Gastrointestinal: soft, non-tender, non-distended, normal bowel sounds Extremities: no cyanosis, no clubbing, no edema Psychiatric: normal affect Hosp A/P (1) Abdominal mass Code(s): R19.00 - INTRA-ABD AND PELVIC SWELLING, MASS AND LUMP, UNSP SITE Status: Acute (2) Sepsis Code(s): A41.9 - SEPSIS, UNSPECIFIED ORGANISM Status: Acute Qualifiers: Sepsis type: Pneumococcus (3) Chronic kidney disease, stage IV (severe) Code(s): N18.4 - CHRONIC KIDNEY DISEASE, STAGE 4 (SEVERE) Status: Chronic (4) Diabetes mellitus Code(s): E11.9 - TYPE 2 DIABETES MELLITUS WITHOUT COMPLICATIONS Status: Chronic Qualifiers: Diabetes mellitus type: type 2 (5) Hyperlipidemia Code(s): E78.5 - HYPERLIPIDEMIA, UNSPECIFIED Status: Chronic - Plan Sepsis - unknown source - pancreatic mass - needs f/u in tertiary center where EUS can be performed - appreciate GI eval - following remotely - positive blood culture x 1 - gram neg horace and gram pos cocci -> on zosyn and vanc -> consult ID - WBC count today is 24 - uncertain of why it has increased this high ELIAS with CKD - consult Nephro/Dr. Werner - low UOP noted by RN - increase maintenance fluids - encourage PO intake - renally dose zosyn Anemia - improved Thrombocytopenia - uncertain etiology - no pharmacologic dvt prophy Hypotension - normal cortisol level - monitor DM - well controlled MD type 2 - appreciate Cardiology consult PT/OT consults requested dvt prophy - scd's gi prophy - not indicated, taking PO code status full reviewed plan of care with patient, no questions or further needs at end of eval pt remains at high risk in current condition Addendum at 11:33 - pt with bradycardia in the 40-50's and bigeminy. Reviewed with Dr. Roy and he recommends stress test - ordered for tomorrow. BP on the lower side - 90-100's systolic. With the decline in renal function, I ordered IV albumin x 24 hours to assist with bp and renal perfusion. Continue IVF.
[2020-03-30] MEDS: Pancrelipase DR 12,000 1 CAP PO SCH ×3 (09:32→16:58)
[2020-03-30] MEDS: Albumin 25% 25 GM/100 ML BOT IVPB SCH ×3 (12:19→23:54)
[2020-03-30] MEDS: Piperacillin/Tazobactam 2.25 GM in Sodium Chloride 0.9% 100 ML IVPB SCH ×2 (15:20→22:15)
--- NOTE | 2020-03-30 15:23 | ULT ---
LIMITED ABDOMINAL ULTRASOUND: Indication: History of mass in the upper abdomen. FINDINGS: There is a large heterogeneous mass centered within the region of the pancreatic head measuring 12.2 x 9.2 x 5.8 cm with prominent dilatation of the main pancreatic duct. Flow is present within the visu alized aspects of the portal vein confluence. There is also some flow present within the splenic vein . IMPRESSION: Large heterogeneous mass in the region of the pancreatic head suspicious for malignancy POS: BH
--- NOTE | 2020-03-30 15:35 | CON ---
DATE OF CONSULTATION: 03/30/2020 REASON: Bacteremia. HISTORY: An 84-year-old who has a 15-year history of type 2 diabetes and was recently admitted with general malaise in January. He was feeling weak, fatigued, which had been present for about 2 weeks before reportedly. Had some worsening dyspnea and did not have any vomiting or diarrhea. No chest or abdominal pain. Vital signs are not remarkable. He is a little bit hypertensive, is afebrile, O2 saturations are normal on room air. The chest exam is normal and the abdomen examination is described as nontender without masses. The white cell count on admission was 4.1, and hemoglobin was 7.8 with a normal MCV. Platelet count was 141 and neutrophil percentage was 55. Creatinine 2.25, which is close to his baseline. Carbon dioxide 16. Anion gap normal. Chloride 110. Hemoglobin A1c was 7.1. Calcium was 7.1. Liver functions included bilirubin 0.5, AST 20, ALT 27, alkaline phosphatase 65. Troponin was normal at 0.020. Albumin 3.3 and globulin 4.1. Amylase was not done, and lipase was not performed either. PTH was 699, has been elevated since July 2019. The patient had a urinalysis with 11-20 WBCs, protein of 200, 2+ blood. Cultures from urine are negative. Two sets of blood culture, no growth 5 days. The only imaging study performed was a chest x-ray, which showed no acute process. The patient was treated for presumptive urinary tract infection, although we really do not have any either subjective or objective evidence to confirm that hypothesis. Evidently must be a different process causing the patient's symptoms which becomes obvious through this admission now when he comes back, but again pretty much the same symptomatology that precipitated the admission in January with generalized weakness, general malaise, and no other symptoms pretty much, although he has had weight loss of about 20 pounds over the past year. He denied any shortness of breath or chest pain. No vomiting. No bleeding. No diarrhea. No genitourinary symptoms. No abdominal pain. No chills or fever. No neurological symptoms. PAST MEDICAL HISTORY: Chronic type 2 diabetes for 15 years, hyperlipidemia, chronic renal failure stage 3 to 4, hypertension. PAST SURGICAL HISTORY: Appendectomy, colonoscopy in 2009. 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 Lives in [place] with . Former smoker, quit about 20 years ago. He used to drink when he was younger. ALLERGIES: NONE. MEDICATION LIST: 1. Calcium carbonate. 2. Insulin. 3. Creon pancreatic enzyme supplementation. 4. Zosyn. 5. Vancomycin. PHYSICAL EXAMINATION: VITAL SIGNS: He has been afebrile in the hospital stay thus far. BP 109/67, pulse 57, respiratory rate 18, and O2 saturation 100. SKIN: No areas of skin breakdown. The patient is voiding on his own in the urinal. He has no lymphadenopathy. Peripheral IV access. HEENT: Ocular movements are conjugate. Somewhat pale conjunctivae. Oral cavity not remarkable. Still few teeth remaining in place with quite a bit of decay and gum disease. NECK: Supple. No jugular vein distention. No thyromegaly. No back tenderness. No neck tenderness. LUNGS: Symmetric air entry. No obvious crackles or wheezing. CARDIAC: S1, S2. Regular rate without murmurs. No S3 or S4. ABDOMEN: Liver edge is percussible about 2 cm below the right coastal margin. No masses are palpable. No splenomegaly. No bladder distention. Abdomen is not distended, and there is no tenderness. Bowel sounds are present. MUSCULOSKELETAL: Some element of muscle wasting noted in the extremities. No joint inflammatory activity. No edema. Pulses are 2+ in dorsalis pedis. Cap refill normal. Plantar responses are flexor. No clonus. He is awake, oriented, follows commands. Speaks Belgian and Chinese. His speech pattern is normal. Recollection appears to be okay. Has no delusional thinking process. He is pleasant. DIAGNOSTIC DATA: The abdomen, pelvis, and chest CT was performed on 03/27, this was a noncontrast study. There was calcified granuloma throughout the chest and abdomen consistent with healed granulomatous disease. Slightly hyperinflated lungs. Parenchymal scarring. No consolidation or pleural fluid. No stones. Within the right upper quadrant, there is a heterogeneous, irregular-shaped low-density mass, 7.9 cm x 8.2 x 6.2 the greatest diameters at the expected location of pancreatic head and duodenum suggestive of thickening of the parada of adjacent bowel. No bowel obstruction noted. ASSESSMENT: Type 2 diabetes, chronic weight loss with chronic weakness, and then this abnormality in the right upper quadrant, central abdomen, unclear nature of the structure that is causing this abnormality, that is probably behind the patient's clinical presentation symptoms. He has evidence of neutrophilia with bandemia. He has been started on broad-spectrum antimicrobial coverage. We will go ahead and repeat the CT study with contrast given orally only at this time and get an abdominal ultrasound to see if we can get further subsidies to better manage this. He may have to be transferred to a tertiary center rather than be discharged and then readmitted. We will see what the next 48 hours show in terms of his inflammatory process, but pancreatic malignancy has been mentioned, although the pancreatic malignancy in the head would be expected to compromise the biliary drainage, which is not evident at this point, so an alternate structure appears to be more likely, an abscess or infected diverticulum or lymph node. The alternate consideration is lymphoma and so on. Job ID: [id number]
--- NOTE | 2020-03-30 17:11 | CON ---
DATE OF CONSULTATION: HISTORY OF PRESENT ILLNESS: Mr. Rod is an 84-year-old white male who was initially admitted for generalized weakness. This was associated with chills and tremors. He was found to be bacteremic. During the initial workup, he had a CAT scan and was found to have an incidental mass in the pancreatic head area. GI has evaluated this patient. Currently, recommendation is eventual upper GI endoscopy. We are being consulted for his acute kidney injury on top of his chronic renal failure. REVIEW OF SYSTEMS: Currently no chest pain or shortness of breath. Appetite and energy level are fair. No nausea. No vomiting. No diarrhea. No constipation. No productive cough. Denies any fever or chills. MEDICATIONS: Currently on 1. Albumin 25 g IV q.6. 2. Creon DR one tab t.i.d. 3. Lipitor 10 mg at bedtime. 4. Calcitriol 0.25 mcg tablet daily. 5. Calcium 500 mg p.o. b.i.d. 6. Humulin R sliding scale. 7. Zosyn 2.25 g IV q.6 hours. 8. Sodium bicarbonate 650 mg p.o. t.i.d. 9. Normal saline at 100 mL/hour, status post vancomycin. PAST MEDICAL HISTORY: 1. Recent diagnosis of pancreatic mass. 2. 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 3. type 2 diabetes mellitus. 4. Status post UTI. 5. Status post prostatitis. 6. Hyperlipidemia. 7. Status post diverticulitis. PAST SURGICAL HISTORY: Status post colonoscopy, status post bilateral cataract surgery, status post right breast excision-benign finding, status post appendectomy. SOCIAL HISTORY: The patient lives in [place], is , one child. 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 No formal schooling. Alcohol, none. No drug abuse. No blood transfusion. He smoked for 25 years-1/2 pack a day, currently not smoking. Sedentary lifestyle. ALLERGIES: NONE. TRAUMA: None. IMMUNIZATION: Up-to-date. HOSPITALIZATIONS: Please see past medical history. FAMILY HISTORY: No family history of ESRD. PHYSICAL EXAMINATION: VITAL SIGNS: Blood pressure is 154/75, heart rate 59, respiratory rate 17, O2 saturation 100%. GENERAL: The patient is awake, comfortable, not in distress. SKIN: Decreased turgor. HEENT: He has slightly pale conjunctivae. Anicteric sclerae. NECK: No neck mass. No carotid bruits. No JVD. CHEST: No deformities. LUNGS: Clear breath sounds. No wheezing. No crackles. HEART: Normal sinus rhythm. No murmur. No gallops. No rubs. ABDOMEN: Globular, soft, nontender. EXTREMITIES: No edema, no deformities. NEUROLOGIC: Awake, oriented to 3 spheres. Moving all extremities. No tremors. No asterixis. LABORATORY DATA: March 30, 2020, white count 24.1, hemoglobin 8.3. March 30, 2020, sodium 140, potassium 3.7, chloride 117, carbon dioxide 14, BUN 48, creatinine 2.54, glucose 80, calcium 7.1. Blood culture March 27, 2020, showed gram-negative horace and gram-positive cocci. Urine culture, no growth to date. March 27, 2020, CT scan of the abdomen and chest showed large heterogeneous soft tissue mass in the right upper quadrant central abdomen-question of pancreatic neoplasm. ASSESSMENT AND PLAN: 1. Pancreatic mass-GI following. Conservative management for the moment. 2. Acute kidney injury on top of his chronic renal failure-I suspect a superimposed hemodynamically-mediated renal dysfunction. Continue current IV hydration with crystalloids and colloids. There is no indication for any dialytic intervention. 3. Anemia, continue to observe, p.r.n. blood transfusion. You can consider starting patient on Epogen 7500 units subcu b.i.d. if needed. I currently will hold this off due to the possibility that he may have a pancreatic neoplasm. Overall prognosis remains guarded with this patient. Recheck CBC and base met in a.m. Job ID: [id number]
--- NOTE | 2020-03-30 17:34 | CT ---
CT ABDOMEN NONCONTRAST CT PELVIS NONCONTRAST: DATE: 03-30-2020 HISTORY: 84-year-old male with intraabdominal mass. Weight loss. COMPARISON: 03-27-2020 TECHNIQUE: IV injection of iodinated contrast media: none Oral contrast media: administered FINDINGS: Lack of IV contrast limits the evaluation. There are new bilateral pleural effusions, right greater than left. No pneumoperitoneum. Moderate to large amount of free fluid throughout the pelvic cavity, greater than on previous CT. New finding of thumbprinting: fold and mural thickening throughout transverse colon consistent with c olitis. Diffuse mural thickening throughout the rest of the colon, including ascending and descending colon. Rectosigmoid colon is collapsed, but there is probably also mural thickening involving those portions also. Diffuse edema throughout the mesentery and intrapelvic fat. Diffuse edema throughout the subcutaneous fat, especially around the flanks and around the hips, has worsened. No abdominal aortic aneurysm. No hydronephrosis. Oral contrast material within nondilated small bowel loops, has reached the ascending colon. Again noted is the large mass in the region of the pancreatic head and uncinate process. The right si de of the mass was measured previously as 6.2 x 8.2 x 7.9 cm. When the uncinate process component of the tumor is included, the entire mass is approximately 11 x 7 x 9.5 cm. It has mixed attenuation. Again noted are the small foci of gas within the mass, which cou ld indicate communication with bowel, although there is no oral contrast material in the mass. The ma ss compresses and narrows the third stage of the duodenum and laterally displaces the second stage of the duodenum. There is severe dilation of the pancreatic duct, which has a caliber of 22 mm at the body of the panc reas. Surgical clips in the right lower quadrant. Mural thickening of the gallbladder could be due to the extensive intraperitoneal edema, and does not necessarily imply cholecystitis. No hepatosplenomegaly. IMPRESSION: 1. 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 2. This obstructs the pancreatic duct, causing severe dilation of the pancreatic duct. 3. Krishnamurthy colitis. 4. Interval worsening of small to moderate amount of ascites. 5. Interval worsening of anasarca. 6. Interval development of new bilateral pleural effusions, right greater than left. 7. Presence of small amount of gas within the tumor could represent superinfection by gas forming org anism or communication with bowel, although no oral contrast material is visualized within it. JACK Day POS: JIN
[2020-03-30] MEDS: Vancomycin 1 GM in Premix Bag 1 BAG IVPB SCH (20:47)
[2020-03-30] MEDS: Atorvastatin Calcium 10 MG TAB PO SCH (20:51)
[2020-03-31] MEDS: Piperacillin/Tazobactam 2.25 GM in Sodium Chloride 0.9% 100 ML IVPB SCH ×4 (04:27→21:04)
[2020-03-31] MEDS: Sodium Chloride 0.9% 1,000 ML IV SCH ×2 (04:38→15:03)
[2020-03-31] MEDS: Albumin 25% 25 GM/100 ML BOT IVPB SCH (06:10)
[2020-03-31 08:26] LABS: Anion Gap 15 mmol/L (10-20); BUN (Urea Nitrogen) 52 mg/dL (8.4-25.7); Calc. Creatinine Clearance 18 mL/min (70-130); Calcium 7.4 mg/dL (7.8-10.44); Carbon Dioxide 14 mmol/L (23-31); Chloride 116 mmol/L (98-107); Estimated GFR-MDRD 21; Glucose 102 mg/dL (83-110); Potassium 3.3 mmol/L (3.5-5.1); Sodium 142 mmol/L (136-145)
--- NOTE | 2020-03-31 09:38 | PDOC.HOSPP ---
- Subjective Encounter Date: 03/31/20 Encounter Time: 14:50 Subjective: Patient back from stress test. Will get his MBS tomorrow. States he always feels cold but not specifically now. When nurse checked temp had trouble getting it and did rectal which was 95. Now under blankets and bear hugger which he says feels really good. - Objective Vital Signs & Weight: Vital Signs (12 hours) Temp Pulse Ox 03/31/20 08:00 97.2 F L 03/31/20 07:38 98 03/31/20 04:37 97.5 F L 03/31/20 00:00 97.8 F Weight Weight 140 lb Most Recent Monitor Data Heart Rate from ECG 60 NIBP 133/92 NIBP BP-Mean 105 Respiration from ECG 10 SpO2 100 I&O: 03/30/20 03/31/20 04/01/20 06:59 06:59 06:59 Intake Total 1150 3302 Output Total 380 700 Balance 770 2602 Result Diagrams: 03/30/20 03:24 03/31/20 07:33 Additional Labs: Accuchecks 03/31/20 03/30/20 03/30/20 06:02 20:44 16:47 POC Glucose 103 121 H 128 H 03/30/20 10:40 POC Glucose 106 Hospitalist ROS - Review of Systems Constitutional: denies: fever, chills Respiratory: denies: cough, shortness of breath Cardiovascular: denies: chest pain, palpitations Gastrointestinal: denies: nausea, vomiting, abdominal pain - Medication Medications: Active Medications Generic Name Dose Route Start Last Admin Trade Name Freq PRN Reason Stop Dose Admin Lipase/Protease/Amylase 1 cap 03/29/20 12:00 03/30/20 16:58 Delfina Suero 56450 PO Not Given TID-WM [facility] Atorvastatin Calcium 10 mg 03/28/20 21:00 03/30/20 20:51 Lipitor PO 10 mg HS HEYDI Administration Calcitriol 0.25 mcg 03/28/20 09:00 03/30/20 08:46 Rocaltrol PO 0.25 mcg DAILY HEYDI Administration Calcium Carbonate 500 mg 03/28/20 08:00 03/30/20 16:58 Oscal-500 PO Not Given BID-[facility] Vancomycin HCl 1 gm/ Device 200 mls @ 200 mls/hr 03/28/20 20:00 03/30/20 20: 47 IVPB 200 mls 2000 HEYDI Administration Sodium Chloride 1,000 mls @ 100 mls/hr 03/30/20 08:25 03/31/20 04:38 Normal Saline 0.9% IV 1,000 mls .Q10H HEDYI Administration Piperacillin Sod/Tazobactam 100 mls @ 200 mls/hr 03/30/20 15:00 03/31/20 04: 27 Sod 2.25 gm/ Sodium Chloride IVPB 100 mls 0300,0900,1500,2100 HEYDI Administration Nystatin 500,000 units 03/28/20 09:00 03/30/20 20:51 Mycostatin SSW 500,000 units QID HEYDI Administration Sodium Bicarbonate 650 mg 03/28/20 09:00 03/30/20 20:51 Bicarbonate, Sodium PO 650 mg TID HEYDI Administration Sodium Chloride 10 ml 03/28/20 09:00 03/30/20 20:52 Flush - Normal Saline IVF 10 ml Q12HR HEYDI Administration - Exam General Appearance: NAD, awake alert General - other findings: thin ENT: moist mucosa Heart: RRR, no murmur, no gallops, no rubs Respiratory: CTAB, no wheezes, no rales, no ronchi Gastrointestinal: soft, non-tender, non-distended, normal bowel sounds Psychiatric: normal affect, normal behavior, A&O x 3 Hosp A/P (1) Abdominal mass Code(s): R19.00 - INTRA-ABD AND PELVIC SWELLING, MASS AND LUMP, UNSP SITE Status: Acute Qualifiers: Abdominal location: epigastric Qualified Code(s): R19.06 - Epigastric swelling, mass or lump (2) Sepsis Code(s): A41.9 - SEPSIS, UNSPECIFIED ORGANISM Status: Acute (3) Myocardial infarction type 2 Code(s): I21.A1 - MYOCARDIAL INFARCTION TYPE 2 Status: Acute (4) Chronic kidney disease, stage IV (severe) Code(s): N18.4 - CHRONIC KIDNEY DISEASE, STAGE 4 (SEVERE) Status: Chronic (5) Diabetes mellitus Code(s): E11.9 - TYPE 2 DIABETES MELLITUS WITHOUT COMPLICATIONS Status: Chronic Qualifiers: Diabetes mellitus type: type 2 (6) Hyperlipidemia Code(s): E78.5 - HYPERLIPIDEMIA, UNSPECIFIED Status: Chronic - Plan Sepsis - unknown source - pancreatic mass - needs f/u in tertiary center where EUS can be performed - appreciate GI eval - following remotely - positive blood culture x 1/2 - gram neg horace and gram pos cocci but with difficult ID, ?contaminents -> on zosyn and vanc -> consulted Dr. Mendez - WBC count today is 24 - uncertain of why it has increased this high ELIAS with CKD - consult Nephro/Dr. Werner - low UOP noted by RN - increase maintenance fluids - encourage PO intake - renally dose zosyn Anemia - improved Thrombocytopenia - uncertain etiology - no pharmacologic dvt prophy Hypotension - normal cortisol level - monitor, Albumin given yesterday, now running a bit high today Bradycardia and Bigeminy - Dr. Roy following - Stress test this morning Dysphagia - NPO, MBS today DM - well controlled AK type 2 - appreciate Dr. Roy Cardiology assistance, stress test done and results pending PT/OT consults requested dvt prophy - scd's gi prophy - not indicated, taking PO code status full reviewed plan of care with patient, no questions or further needs at end of eval pt remains at high risk in current condition
[2020-03-31] MEDS: Calcium Carbonate 500 MG TAB PO SCH ×2 (09:48→16:04)
[2020-03-31] MEDS: Pancrelipase DR 12,000 1 CAP PO SCH ×3 (09:48→16:04)
[2020-03-31] MEDS: Nystatin 500,000 UNITS/5 ML UDCUP SSW SCH ×4 (09:51→21:07)
--- NOTE | 2020-03-31 09:53 | PRG ---
DATE OF SERVICE: 03/31/2020 SUBJECTIVE: Mr. Rod is an 84-year-old male, followed up by the Renal Service for his acute kidney injury on top of his chronic renal failure. The slightly higher creatinine was felt that this could be related to underlying prerenal azotemia. He has been started on albumin infusion as well as normal saline. Please note, during this admission, he was found to have an incidental finding of a pancreatic mass. GI is following this patient. The patient voices no new complaints today. No chest pain or shortness of breath. OBJECTIVE: VITAL SIGNS: Blood pressure 133/92, heart rate 60, respiratory rate 10, and O2 saturation 100%. GENERAL: The patient is awake, comfortable, not in distress. SKIN: Decreased turgor. HEENT: He has slightly pale conjunctivae. Anicteric sclerae. NECK: No neck mass. No carotid bruits. No JVD. CHEST: No deformities. LUNGS: Clear breath sounds. HEART: Normal sinus rhythm. No murmur. No gallops. No rubs. ABDOMEN: Globular, soft, and nontender. No masses. EXTREMITIES: No edema. No deformities. MEDICATIONS: Of March 31, 2020, reviewed. LABORATORY DATA: Laboratories of March 30, 2020; white count 24.1, hemoglobin 8.3. Sodium 142, potassium 3.3, chloride 106, carbon dioxide 14, BUN 52, creatinine 2.85, GFR 21 mL/minute, and calcium 7.4. ASSESSMENT AND PLAN: 1. Acute kidney injury - consider superimposed hemodynamically-mediated renal dysfunction. Continue gentle volume repletion. Status post albumin infusion. Continue normal saline. No indication for any dialytic intervention. 2. Anemia. We will start weekly Epogen with this patient. 3. Metabolic acidosis, currently on sodium bicarbonate. 4. Pancreatic mass - GI following. Job ID: [id number]
[2020-03-31] MEDS ORDERED: EPOETIN ALFA-EPBX (ESRD) 4,000 UNIT/ML VIAL SC SCH (10:00)
[2020-03-31] MEDS: Sodium Bicarbonate Tab 325 MG TAB PO SCH ×3 (10:13→21:07)
[2020-03-31] MEDS ORDERED: Regadenoson 0.4 MG/5 ML SYRINGE ONE (10:53)
[2020-03-31] MEDS: Calcitriol 0.25 MCG CAP PO SCH (12:36)
--- NOTE | 2020-03-31 15:03 | NM ---
NM Cardiac Stress W EF WF History: Bradycardia. Evaluate for ischemia Comparison: None. Findings: Stress and rest performed after the intravenous administration 27.6 and 9 mCi technetium 99 m sestamibi, respectively. Adequate left ventricular radiotracer uptake. No scar or ischemia. Mild Global hypokinesia. The calcu lated ejection fraction is 41%. Impression: 1. No acute ischemic change. 2. Mild global hypokinesia with ejection fraction of 41%.
--- NOTE | 2020-03-31 16:34 | PRG ---
DATE OF SERVICE: 03/31/2020 SUBJECTIVE: Mr. Rod has mild to moderate abdominal pain. He had a bowel movement, which was liquid. He was a bit hypothermic earlier today. OBJECTIVE: VITAL SIGNS: BP 160/103, pulse 69, respirations 16. GENERAL: The patient does not appear in any distress. Appears frail and weak. HEENT: His ocular movements are conjugate. LUNGS: Symmetric, clear breath sounds. HEART: S1 and S2, regular rate. ABDOMEN: Soft. Mild epigastric tenderness. LABORATORY DATA: White cell count is 24,000, hemoglobin 8.3, platelets 80,000, bands at 36%. Creatinine 2.85, which is an upward trend. Liver profile within normal limits. Blood culture one set with gram-negative rods and gram-positive cocci, yet to be identified, susceptibility tested. C diff negative. Repeat abdomen and pelvis CT with oral contrast with a very large pancreatic mass obstructing pancreatic duct and causing severe dilation, pancolitis and some ascites, anasarca, pleural effusions, a small amount of gas within the pancreatic mass. The abdominal ultrasound with again the dilatation of the pancreatic duct, flow was present in the visualized aspects of portal vein and splenic vein. ASSESSMENT AND DISCUSSION: Type 2 diabetes, weight loss, weakness, pancreatic mass with pancreatic duct obstruction, diffuse colitis with negative Clostridium difficile test. Differential diagnosis includes ulcerative colitis with pancreatic malignancy, ischemic colitis in view of the thumbprinting, and pancreatic malignancy. Pancreatic abscess is another possibility. Autoimmune pancreatitis due to IgG4 related disease is less likely. Continue antimicrobial coverage until final results of the identification are provided. Probably advise transfer to a tertiary center for histologic diagnosis. He may need an endoscopy as well to evaluate for colitis. Job ID: [id number]
[2020-03-31 19:21] LABS: Vancomycin, Trough 29.8 ug/mL
[2020-03-31] MEDS: Atorvastatin Calcium 10 MG TAB PO SCH (21:07)
[2020-04-01] MEDS: Sodium Chloride 0.9% 1,000 ML IV SCH (01:17)
[2020-04-01] MEDS: Piperacillin/Tazobactam 2.25 GM in Sodium Chloride 0.9% 100 ML IVPB SCH ×5 (02:38→21:28)
[2020-04-01 05:03] LABS: Anion Gap 17 mmol/L (10-20); BUN (Urea Nitrogen) 55 mg/dL (8.4-25.7); Calc. Creatinine Clearance 18 mL/min (70-130); Calcium 7.5 mg/dL (7.8-10.44); Chloride 119 mmol/L (98-107); Estimated GFR-MDRD 20; Glucose 106 mg/dL (83-110); Potassium 3.4 mmol/L (3.5-5.1); Sodium 142 mmol/L (136-145)
[2020-04-01 05:10] LABS: Band 28 % (5-11); Hemoglobin 9.4 g/dL (14.0-18.0); Lymphocytes 8 % (21-51); MDiff Complete? YES; Mean Corpuscular HGB CONC 32.4 g/dL (32.0-36.0); Mean Corpuscular Hemoglobin 30.6 pg (27.0-31.0); Mean Corpuscular Volume 94.4 fL (78.0-98.0); Monocytes 2 % (0-10); Neutrophil 62 % (42-75); Platelet Count 67 thou/uL (130-400); Platelet Morphology Comment Appears Decreased; RBC Distribution Width 13.7 % (11.5-14.5); Red Blood Cell (RBC) Count 3.07 mill/uL (4.70-6.10); White Blood Cell (WBC) Count 13.5 thou/uL (4.8-10.8)
[2020-04-01 05:14] LABS: Carbon Dioxide 9 mmol/L (23-31)
[2020-04-01 06:35] LABS: Lactic Acid 0.7 mmol/L (0.5-2.2)
[2020-04-01] MEDS: Pancrelipase DR 12,000 1 CAP PO SCH ×3 (07:31→17:05)
[2020-04-01] MEDS: Calcium Carbonate 500 MG TAB PO SCH ×2 (07:31→17:05)
[2020-04-01] MEDS: Sodium Bicarbonate Tab 325 MG TAB PO SCH ×3 (07:32→20:32)
[2020-04-01] MEDS: Nystatin 500,000 UNITS/5 ML UDCUP SSW SCH ×4 (07:32→20:31)
--- NOTE | 2020-04-01 08:01 | PRG ---
DATE OF SERVICE: 04/01/2020 SUBJECTIVE: Mr. Rod is an 84-year-old white male who was seen by the Renal Service for his acute kidney injury on top of his chronic renal failure. He has superimposed prerenal azotemia. During the initial evaluation, he was found to also have a pancreatic mass. The exact etiology of this pancreatic mass is unclear. Possible infectious etiology remains. ID is following this patient. During this lab work today, he was found to have severe metabolic acidosis. The patient complained of some mild abdominal pain. OBJECTIVE: VITAL SIGNS: Blood pressure is noted at 170/74, heart rate 54, respiratory rate 15, temperature 97.5, O2 saturation 100% on room air. GENERAL: Awake, comfortable, not in overt distress. Mildly cachectic. SKIN: Decreased turgor. HEENT: He has pinkish conjunctivae. Anicteric sclerae. No neck mass. No carotid bruits. No JVD. CHEST: No deformities. LUNGS: Clear breath sounds. No wheezing. No crackles. HEART: Normal sinus rhythm. No murmurs, no gallops, no rubs. ABDOMEN: Globular, soft, nontender. No masses. EXTREMITIES: No edema. MEDICATIONS: April 01, 2020, was reviewed. LABORATORY DATA: Laboratories of April 01, 2020, white count 13.5, hemoglobin 9.4, hematocrit 29. Sodium 142, potassium 3.4, chloride 109, carbon dioxide 9, BUN 55, creatinine 2.96, glucose 106, calcium 7.5. ASSESSMENT AND PLAN: 1. Acute kidney injury on top of his chronic renal failure. Has superimposed hemodynamically-mediated renal dysfunction. We will continue IV hydration. No indication for any dialytic intervention. 2. Bacteremia, currently on IV antibiotics. 3. Pancreatic mass-may need further workup. GI is following. 4. Metabolic acidosis-we will start patient on isotonic bicarbonate to run at 100 mL/hour. 5. Overall prognosis remains guarded with this patient. Recheck CBC, base met in a.m. Job ID: [id number]
--- NOTE | 2020-04-01 09:47 | PDOC.HOSPP ---
- Subjective Encounter Date: 04/01/20 Encounter Time: 10:00 Subjective: Patient doing well. No complaints currently. Just got back from modified barium swallow and awaiting ST recs. - Objective Vital Signs & Weight: Vital Signs (12 hours) Temp Pulse Resp BP Pulse Ox 04/01/20 07:55 97.4 F L 52 L 16 130/66 98 04/01/20 06:07 97.9 F 04/01/20 03:25 97.5 F L 54 L 15 170/74 H 100 Weight Weight 148 lb 3.2 oz Most Recent Monitor Data Heart Rate from ECG 53 NIBP 148/65 NIBP BP-Mean 92 Respiration from ECG 22 SpO2 100 I&O: 03/31/20 04/01/20 04/02/20 06:59 06:59 06:59 Intake Total 3302 1600 Output Total 700 200 Balance 2602 1400 Result Diagrams: 04/01/20 04:19 04/01/20 04:19 Additional Labs: Accuchecks 04/01/20 03/31/20 03/31/20 06:08 20:24 17:11 POC Glucose 86 117 H 125 H 03/31/20 10:31 POC Glucose 107 Hospitalist ROS - Review of Systems Constitutional: denies: fever, chills Respiratory: denies: cough, shortness of breath Cardiovascular: denies: chest pain, palpitations Gastrointestinal: denies: nausea, vomiting, abdominal pain - Medication Medications: Active Medications Generic Name Dose Route Start Last Admin Trade Name Freq PRN Reason Stop Dose Admin Lipase/Protease/Amylase 1 cap 03/29/20 12:00 04/01/20 07:31 Delfina Suero [id number] PO Not Given TID-WM [facility] Atorvastatin Calcium 10 mg 03/28/20 21:00 03/31/20 21:07 Lipitor PO Not Given HS [facility] Calcitriol 0.25 mcg 03/28/20 09:00 03/31/20 12:36 Rocaltrol PO Not Given DAILY [facility] Calcium Carbonate 500 mg 03/28/20 08:00 04/01/20 07:31 Oscal-500 PO Not Given BID-WM [facility] Epoetin Yimi-epbx 7,500 unit 03/31/20 10:00 03/31/20 12:59 Retacrit SC 7,500 unit Q7D [facility] Administration Piperacillin Sod/Tazobactam 100 mls @ 200 mls/hr 03/30/20 15:00 04/01/20 08: 00 Sod 2.25 gm/ Sodium Chloride IVPB 100 mls 0300,0900,1500,2100 [facility] Administration Nystatin 500,000 units 03/28/20 09:00 04/01/20 07:32 Mycostatin SSW Not Given QID [facility] Sodium Bicarbonate 650 mg 03/28/20 09:00 04/01/20 07:32 Bicarbonate, Sodium PO Not Given TID [facility] Sodium Chloride 10 ml 03/28/20 09:00 04/01/20 08:00 Flush - Normal Saline IVF Not Given Q12HR [facility] - Exam General Appearance: NAD, awake alert ENT: moist mucosa Heart: irregular. negative: murmur present Heart - other findings: bradycardic Respiratory: CTAB, no wheezes, no rales, no ronchi Gastrointestinal: soft, non-tender, non-distended, normal bowel sounds Psychiatric: normal affect, normal behavior Hosp A/P (1) Abdominal mass Code(s): R19.00 - INTRA-ABD AND PELVIC SWELLING, MASS AND LUMP, UNSP SITE Status: Acute Qualifiers: Abdominal location: epigastric Qualified Code(s): R19.06 - Epigastric swelling, mass or lump (2) Sepsis Code(s): A41.9 - SEPSIS, UNSPECIFIED ORGANISM Status: Acute (3) Myocardial infarction type 2 Code(s): I21.A1 - MYOCARDIAL INFARCTION TYPE 2 Status: Acute (4) Chronic kidney disease, stage IV (severe) Code(s): N18.4 - CHRONIC KIDNEY DISEASE, STAGE 4 (SEVERE) Status: Chronic (5) Diabetes mellitus Code(s): E11.9 - TYPE 2 DIABETES MELLITUS WITHOUT COMPLICATIONS Status: Chronic Qualifiers: Diabetes mellitus type: type 2 (6) Hyperlipidemia Code(s): E78.5 - HYPERLIPIDEMIA, UNSPECIFIED Status: Chronic (7) Bradycardia Code(s): R00.1 - BRADYCARDIA, UNSPECIFIED Status: Acute (8) Bigeminal rhythm Code(s): I49.8 - OTHER SPECIFIED CARDIAC ARRHYTHMIAS Status: Acute - Plan Sepsis - unknown source - pancreatic mass - needs f/u in tertiary center where EUS can be performed, transfer soon as cardiology states no intervention for PVCs - appreciate GI eval - following remotely - positive blood culture x 1/2 - gram neg horace and gram pos cocci but with difficult ID at 5 days out, ?contaminents -> on zosyn and vanc -> consulted Dr. Mendez - WBC count improving today ELIAS with CKD - consult Nephro/Dr. Wrener - low UOP noted by RN - increase maintenance fluids - encourage PO intake - renally dose zosyn Anemia - improved Thrombocytopenia - uncertain etiology - no pharmacologic dvt prophy Hypotension resolved - normal cortisol level - Albumin given and now running a bit high Bradycardia and Bigeminy - Dr. Roy following, no intervention necessary per his recs - Stress test negative, EF 41% Dysphagia - NPO, MBS today DM - well controlled MS type 2 - appreciate Dr. Roy Cardiology assistance, stress test negative Will discuss possible transfer or EGD with GI. PT/OT consults requested dvt prophy - scd's gi prophy - not indicated, taking PO code status full reviewed plan of care with patient, no questions or further needs at end of eval pt remains at high risk in current condition
[2020-04-01] MEDS: Calcitriol 0.25 MCG CAP PO SCH (10:12)
--- NOTE | 2020-04-01 10:23 | RAD ---
Exam: Modified barium swallow the presence of speech pathologist Exposure: 1.9 minutes. 0.554 gonsalez per centimeter square HISTORY: Feeding difficulties. Dysphagia, unspecified FINDINGS: The presence speech pathologist, the patient was administered thin liquid, nectar thick, pu dding, mechanical soft and solid consistencies There is penetration with the thin liquid and nectar thick consistencies. There is premature spillage and pooling with all the aforementioned consistencies. IMPRESSION: Please refer to speech pathologist report for feeding recommendation.
[2020-04-01] MEDS: Sodium Bicarbonate 150 MEQ in Dextrose 5% in Water 850 ML IV SCH ×2 (10:48→21:28)
--- NOTE | 2020-04-01 16:39 | PDOC.FMACP ---
Advance Care Planning - Problem (1) Palliative care encounter Status: Acute Code(s): Z51.5 - ENCOUNTER FOR PALLIATIVE CARE (2) Physical deconditioning Status: Acute Code(s): R53.81 - OTHER MALAISE (3) Abdominal mass Status: Acute Code(s): R19.00 - INTRA-ABD AND PELVIC SWELLING, MASS AND LUMP, UNSP SITE Qualifiers: Abdominal location: epigastric Qualified Code(s): R19.06 - Epigastric swelling, mass or lump (4) Chronic kidney disease, stage IV (severe) Status: Chronic Code(s): N18.4 - CHRONIC KIDNEY DISEASE, STAGE 4 (SEVERE) (5) Diabetes mellitus Status: Chronic Code(s): E11.9 - TYPE 2 DIABETES MELLITUS WITHOUT COMPLICATIONS Qualifiers: Diabetes mellitus type: type 2 - Note Participants: patient, family, palliative care Summary: Palliative Care introduced Advanced Care Planning, opportunity to decline. The diagnosis, prognosis and goals of care were discussed. Appropriate forms and documentation to accomplish the goals of care were discussed. All questions were answered. Mr Rod confirms his is his primary decision maker, and his only daughter Johnna. Discussed his wishes and completing DNAR as well as OOHDNAR. Patient is electing to transition to hospice to seek comfort, and forgo any further aggressive therapies or treatments. Will have Palliative Care registrar complete Directive to physician and OOHDNAR tomorrow. Continue to remain with full resuscitation today. The Palliative Care Team will continue to assist with completion of any outstanding forms identified. Time Spent (mins): 20
--- NOTE | 2020-04-01 16:47 | PDOC.PALCO ---
Palliative Care Consult - Consult Details Requesting Physician: Dr Newby Reason for Consult: goals of care, family support, complex decision-making Family Members Present: and daughter Johnna - Pertinent HPI 84 year old male who was with his friends playing cards and had an onset of tremors, weakness and fatigue. He was evaluated in the emergency room and admitted for medical management and further evaluation. 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 Recommendations are to consider surgery consult and potential transfer to [facility]. Patient and family fully aware of options and have elected to forgo any further treatment or interventions, and seeking comfort through hospice. In talking with Mr Marcel daughter she states he has had continued weakness paired with significant weight loss. He lives in a private home setting with his and daughter and her spouse as primary caregivers. - Pertinent PMH CKD, Anemia, HTN, Diabetes, HDL, Diverticulitis - Social History Smoking Status: Former smoker Smoking: quit greater than 1 year Alcohol Use: occasional Drug Use History: none Living Situation: - Medications MAR Reviewed: Yes - Allergies Allergies/Adverse Reactions: Allergies Allergy/AdvReac Type Severity Reaction Status Date / Time No Known Allergies Allergy Verified 03/28/20 00:55 - Subjective Awake, weakness, incontinent. - ROS Constitutional: alert, chills, malaise, weakness, weight changes ENT: alteration in dentition, dry mouth, difficulty swallowing Respiratory: shortness of breath with extertion Cardiology: other (negative for chest pain or discomfort) Gastrointestinal: other (negative for nausea or vomiting) Genitourinary: incontinence Neurological: other (Negative for dizziness, tremors ) - Objective Vital Signs: Vital Signs - Most Recent Temp Pulse Resp BP Pulse Ox 97.3 F L 55 L 16 148/66 H 99 04/01/20 15:36 04/01/20 15:36 04/01/20 15:36 04/01/20 15:36 04/01/20 15:36 Palliative Performance Scale: 30 - Physical Exam Constitutional: cachectic, ill appearing HEENT: EOMI, moist MMs, sclera anicteric Respiratory: clear to auscultation bilateral, no rales, no wheezing, diminished lung sound Cardiovascular: irregular Gastrointestinal: soft Musculoskeletal: diffuse muscle atrophy Neurology: moves all 4 limbs Skin: cap refill <2 seconds, fragile Psychiatric: A&O x 3 - Problem List (1) Palliative care encounter Code(s): Z51.5 - ENCOUNTER FOR PALLIATIVE CARE Current Visit: Yes Status: Acute (2) Physical deconditioning Code(s): R53.81 - OTHER MALAISE Current Visit: Yes Status: Acute (3) Abdominal mass Code(s): R19.00 - INTRA-ABD AND PELVIC SWELLING, MASS AND LUMP, UNSP SITE Current Visit: Yes Status: Acute Qualifiers: Abdominal location: epigastric Qualified Code(s): R19.06 - Epigastric swelling, mass or lump (4) Chronic kidney disease, stage IV (severe) Code(s): N18.4 - CHRONIC KIDNEY DISEASE, STAGE 4 (SEVERE) Current Visit: Yes Status: Chronic (5) Diabetes mellitus Code(s): E11.9 - TYPE 2 DIABETES MELLITUS WITHOUT COMPLICATIONS Current Visit : Yes Status: Chronic Qualifiers: Diabetes mellitus type: type 2 - Plan/Recommendations Plan: Visited with patient and family. He has been to his 56 years. States that the most important thing to him is his and daughter. Discussion in relation to goal of care patient has elected to transition to Hospice to be at home with his and daughter and forgo any further treatments or evaluations. Emotional support and therapeutic listening. requesting hospice evaluation Will follow up 04/01 to complete OOHDNAR Order placed for CM and hospice referral. Dr Newby notified. [55] minutes spent on this encounter with >50% of the time in counseling and coordination of care. Thank you for this very appropriate consult.
--- NOTE | 2020-04-01 18:57 | PRG ---
DATE OF SERVICE: 04/01/2020 SUBJECTIVE: Mr. Bhandari is resting comfortably in bed. OBJECTIVE: VITAL SIGNS: He has a temperature of 97.3, he is drinking liquids, pulse is 55, blood pressure 173/79. HEENT: He has temporal wasting. LUNGS: Clear. HEART: Regular rate and rhythm without clicks or murmurs. ABDOMEN: Scaphoid, but nontender. LABORATORY DATA: White count 13,500 down from 24,000 yesterday, hemoglobin is 9.4, MCV is normal, and platelets 66,000. Sodium 142, potassium 3.4, chloride 119, bicarb 9, BUN is 55, and creatinine is 2.96, up from 2.02 on admission. CEA was normal. CA 19-9 is pending. Liver function tests were normal. Lipase was normal and amylase was normal. CT scan films reviewed today with Radiology from the . They feel that there is likely a mass pancreatic head and uncinate process, which may be invading the duodenum or it may be something in the duodenum, which is invading the pancreas. There is gas foci, which could indicate bowel communication. There is fluid and this may indicate an abscess. There is severe pancreatic ductal dilatation. ASSESSMENT: 1. Chronic weight loss, admitted with poor p.o. intake and with imaging suggesting a large mass in the pancreas that may be abscess and may be tumor and may be a dilated pancreatic duct, small amount of ascites, effusions. There is gas within the mass, which could indicate abscess or infection, possible communication with the bowel. 2. Worsening renal function. 3. I have talked with the patient's family today, it is my 1st day of seeing them. It seems that there has been some decisions made to move toward hospice surgery refused to see the patient based on the fact that they do not operate on pancreas here. I told them that there is some features I am uncomfortable with and that usually pancreatic cancer does not look like this, especially adenocarcinoma of the pancreas. This could represent a perforated ulcer or abscess or changes of chronic pancreatitis with dilated ducts and causing obstruction to the pancreatic duct. Offered upper endoscopy to evaluate the duodenum for mass or tumor invasion or even CT-guided biopsy and drainage by Radiology at this time; however, they want to hold off and I have discussed this with Dr. Newby, the patient's primary physician, as well as Dr. Mendez. Job ID: [id number]
[2020-04-01] MEDS: Atorvastatin Calcium 10 MG TAB PO SCH (20:31)
[2020-04-01] MEDS: HumaLOG 300 UNITS/3 ML VIAL SC PRN (20:57)
[2020-04-02] MEDS: Vancomycin 1 GM in Premix Bag 1 BAG IVPB SCH ×2 (00:13→04:23)
[2020-04-02] MEDS: Piperacillin/Tazobactam 2.25 GM in Sodium Chloride 0.9% 100 ML IVPB SCH ×3 (02:40→16:51)
[2020-04-02 04:39] LABS: Anion Gap 15 mmol/L (10-20); BUN (Urea Nitrogen) 59 mg/dL (8.4-25.7); Calc. Creatinine Clearance 18 mL/min (70-130); Calcium 7.3 mg/dL (7.8-10.44); Carbon Dioxide 16 mmol/L (23-31); Chloride 113 mmol/L (98-107); Estimated GFR-MDRD 20; Glucose 333 mg/dL (83-110); Sodium 141 mmol/L (136-145)
[2020-04-02 04:46] LABS: Potassium 2.8 mmol/L (3.5-5.1)
[2020-04-02 04:51] LABS: Band 1 % (5-11); Hemoglobin 8.7 g/dL (14.0-18.0); Hypochromia SLIGHT = 6-15 cells (100X) (0-5/hpf); Lymphocytes 12 % (21-51); MDiff Complete? YES; Mean Corpuscular HGB CONC 33.3 g/dL (32.0-36.0); Mean Corpuscular Hemoglobin 30.5 pg (27.0-31.0); Mean Corpuscular Volume 91.6 fL (78.0-98.0); Metamyelocyte 2 % (0-0); Monocytes 8 % (0-10); Neutrophil 77 % (42-75); Platelet Count 50 thou/uL (130-400); Platelet Morphology Comment Appears Decreased; RBC Distribution Width 13.6 % (11.5-14.5); Red Blood Cell (RBC) Count 2.84 mill/uL (4.70-6.10); White Blood Cell (WBC) Count 5.6 thou/uL (4.8-10.8)
[2020-04-02] MEDS: Potassium Chloride 20 MEQ in Premix Bag 1 BAG IVPB SCH ×2 (05:09→07:32)
[2020-04-02] MEDS ORDERED: HumaLOG 300 UNITS/3 ML VIAL SC PRN (06:43)
[2020-04-02] MEDS: Sodium Bicarbonate 150 MEQ in Dextrose 5% in Water 850 ML IV SCH (07:36)
[2020-04-02] MEDS ORDERED: Albumin 25% 25 GM/100 ML BOT IVPB SCH (07:55)
--- NOTE | 2020-04-02 08:26 | PRG ---
DATE OF SERVICE: 04/02/2020 SUBJECTIVE: Mr. Rod is an 84-year-old male, followed up by the Renal Service for his chronic renal failure. Renal function has been worsening in the last few days. I still feel strongly there may be a prerenal component. He was admitted for bacteremia. He was also on found to have an incidental pancreatic mass, which could be underlying tumor with a possible concomitant pancreatic abscess. The family is veering towards hospice care. Surgery has decline to intervene due to his poor medical condition. He voices no new complaints. He has complaints of some abdominal fullness. GI has offered upper GI endoscopy to evaluate the duodenum for mass or tumor, but the patient and the family would like to hold off. No acute events noted last night. OBJECTIVE: VITAL SIGNS: Blood pressure 167/76, heart rate 51, respiratory rate 18, temperature 98, and O2 saturation 99% on room air. GENERAL: The patient is awake, comfortable, lethargic. SKIN: Decreased turgor. HEENT: He has slightly pale conjunctivae. Anicteric sclerae. NECK: No neck mass. No carotid bruits. No JVD. CHEST: No deformities. LUNGS: Decreased breath sounds. HEART: Normal sinus rhythm. No murmurs. No gallops. No rubs. ABDOMEN: Globular, soft, and nontender. No masses. EXTREMITIES: No edema. No deformities. MEDICATIONS: Medications of April 02, 2020, were reviewed. LABORATORY DATA: Laboratories of April 02, 2020; white count 5.6, hemoglobin 8.7. Sodium 141, potassium 2.8, chloride 103, carbon dioxide 16, BUN 59, creatinine 3.04, and calcium 7.3. CEA is 3.87. ASSESSMENT AND PLAN: 1. Chronic renal failure-worsening renal dysfunction. I feel that there is a superimposed prerenal azotemia. I would for the moment continue IV hydration due to the fact that the patient has decreased p.o. intake. My bias is also to give him an albumin infusion at 25 g IV q.6. 2. Pancreatic mass. Continue supportive care. GI and ID following. The patient's family has not to proceed with any invasive procedure at the present time. 3. Anemia, currently on weekly Epogen. Continue supportive care. P.r.n. blood transfusion. 4. We will recheck CBC and basic met in a.m. Start albumin infusion for one day. Job ID: [id number]
--- NOTE | 2020-04-02 08:30 | PDOC.HOSPP ---
- Subjective Encounter Date: 04/02/20 Encounter Time: 10:30 Subjective: Patient feeling unchanged, no active complaints. Spoke with patient, , daughter at bedside, made clear that without some sort of biopsy we cannot be sure this is a tumor and not an abscess only. Patient and family expressed understanding but they don't want any more interventions and desire for him to go home with [facility]. - Objective Vital Signs & Weight: Vital Signs (12 hours) Temp Pulse Resp BP Pulse Ox 04/02/20 03:54 98.0 F 51 L 18 167/76 H 99 04/02/20 00:00 97.7 F 48 L 154/70 H Weight Weight 147 lb 1.6 oz Most Recent Monitor Data Heart Rate from ECG 53 NIBP 148/65 NIBP BP-Mean 92 Respiration from ECG 22 SpO2 100 I&O: 04/01/20 04/02/20 04/03/20 06:59 06:59 06:59 Intake Total 1600 3260 Output Total 200 550 Balance 1400 2710 Result Diagrams: 04/02/20 03:54 04/02/20 03:54 Additional Labs: Accuchecks 04/02/20 04/01/20 04/01/20 06:01 20:25 16:32 POC Glucose 345 H 300 H 183 H 04/01/20 11:03 POC Glucose 101 Hospitalist ROS - Review of Systems Constitutional: reports: weakness. denies: fever, chills Respiratory: denies: cough, shortness of breath Cardiovascular: denies: chest pain, palpitations Gastrointestinal: denies: nausea, vomiting, abdominal pain - Medication Medications: Active Medications Generic Name Dose Route Start Last Admin Trade Name Baq PRN Reason Stop Dose Admin Lipase/Protease/Amylase 1 cap 03/29/20 12:00 04/01/20 17:05 Delfina Suero 86691 PO 1 cap TID-WM HEYDI Administration Atorvastatin Calcium 10 mg 03/28/20 21:00 04/01/20 20:31 Lipitor PO 10 mg HS HEYDI Administration Calcitriol 0.25 mcg 03/28/20 09:00 04/01/20 10:12 Rocaltrol PO Not Given DAILY HEYDI Calcium Carbonate 500 mg 03/28/20 08:00 04/01/20 17:05 Oscal-500 PO 500 mg BID-WM HEYDI Administration Epoetin Yimi-epbx 7,500 unit 03/31/20 10:00 03/31/20 12:59 Retacrit SC 7,500 unit Q7D HEYDI Administration Piperacillin Sod/Tazobactam 100 mls @ 200 mls/hr 03/30/20 15:00 04/02/20 02: 40 Sod 2.25 gm/ Sodium Chloride IVPB 100 mls 0300,0900,1500,2100 HEYDI Administration Sodium Bicarbonate 150 meq/ 1,000 mls @ 100 mls/hr 04/01/20 09:30 04/02/20 07 :36 Dextrose/Water IV 1,000 mls .Q10H HEYDI Administration Potassium Chloride 20 meq/ 100 mls @ 50 mls/hr 04/02/20 05:30 04/02/20 07:32 Device IVPB 04/02/20 09:29 100 mls Q2H HEYDI Administration Insulin Human Lispro 0 units 04/01/20 20:30 04/01/20 20:57 Humalog SC 3 units .BEDTIME SLIDING SC PRN Administration Bedtime Correctional Scale Insulin Human Lispro 0 units 04/02/20 06:43 04/02/20 06:57 Humalog SC 5 unit .MILD SLIDING SCALE PRN Administration MILD SLIDING SCALE Protocol Nystatin 500,000 units 03/28/20 09:00 04/01/20 20:31 Mycostatin SSW 500,000 units QID HEYDI Administration Sodium Chloride 10 ml 03/28/20 09:00 04/01/20 20:42 Flush - Normal Saline IVF Not Given Q12HR HEYDI - Exam General Appearance: NAD, awake alert ENT: moist mucosa Heart: no murmur, no gallops, no rubs, irregular Heart - other findings: mild bradycardia Respiratory: CTAB, no wheezes, no rales, no ronchi Gastrointestinal: soft, non-tender, non-distended, normal bowel sounds Psychiatric: normal affect, normal behavior, A&O x 3 Hosp A/P (1) Abdominal mass Code(s): R19.00 - INTRA-ABD AND PELVIC SWELLING, MASS AND LUMP, UNSP SITE Status: Acute Qualifiers: Abdominal location: epigastric Qualified Code(s): R19.06 - Epigastric swelling, mass or lump (2) Sepsis Code(s): A41.9 - SEPSIS, UNSPECIFIED ORGANISM Status: Resolved (3) Myocardial infarction type 2 Code(s): I21.A1 - MYOCARDIAL INFARCTION TYPE 2 Status: Acute (4) Chronic kidney disease, stage IV (severe) Code(s): N18.4 - CHRONIC KIDNEY DISEASE, STAGE 4 (SEVERE) Status: Chronic (5) Diabetes mellitus Code(s): E11.9 - TYPE 2 DIABETES MELLITUS WITHOUT COMPLICATIONS Status: Chronic Qualifiers: Diabetes mellitus type: type 2 (6) Hyperlipidemia Code(s): E78.5 - HYPERLIPIDEMIA, UNSPECIFIED Status: Chronic (7) Bradycardia Code(s): R00.1 - BRADYCARDIA, UNSPECIFIED Status: Acute (8) Bigeminal rhythm Code(s): I49.8 - OTHER SPECIFIED CARDIAC ARRHYTHMIAS Status: Acute - Plan Sepsis - unknown source - pancreatic mass - needs f/u in tertiary center where EUS can be performed, transfer soon as cardiology states no intervention for PVCs - appreciate GI eval - following remotely - positive blood culture x 1/2 - gram neg horace and gram pos cocci but with difficult ID at 5 days out, ?contaminents -> on zosyn and vanc -> consulted Dr. Mendez - WBC count improving today ELIAS with CKD - worsening creatinine - consult Nephro/Dr. Werner - low UOP noted by RN - increase maintenance fluids - encourage PO intake - renally dose zosyn Anemia - improved Thrombocytopenia - uncertain etiology - no pharmacologic dvt prophy Hypotension resolved - normal cortisol level - Albumin given and now running a bit high Bradycardia and Bigeminy - Dr. Roy following, no intervention necessary per his recs - Stress test negative, EF 41% Dysphagia - NPO, MBS today DM - well controlled UT type 2 - appreciate Dr. Roy Cardiology assistance, stress test negative PT/OT consults requested dvt prophy - scd's gi prophy - not indicated, taking PO code status full I discussed case with Dr. Best yesterday and he stated that there was no reason for general surgery here to see the patient as they don't do pancreatic surgery, recommended transfer to referral center as soon as stable enough. Spoke with Dr. Walls and he stated that he would prefer to have a tissue diagnosis to make sure this is cancer before going on hospice. Spoke with daughter and she and patient's came in and along with the patient discussed case with palliative care. They would like to take him home on hospice.
[2020-04-02] MEDS: Pancrelipase DR 12,000 1 CAP PO SCH ×2 (09:31→16:50)
[2020-04-02] MEDS: Nystatin 500,000 UNITS/5 ML UDCUP SSW SCH ×2 (09:32→16:50)
[2020-04-02] MEDS: Calcium Carbonate 500 MG TAB PO SCH (09:32)
[2020-04-02] MEDS: Calcitriol 0.25 MCG CAP PO SCH (09:32)
[2020-04-02] MEDS: HumaLOG 300 UNITS/3 ML VIAL SC PRN (10:59)
[2020-04-02 11:36] VITALS: BP 151/67; TEMP 97.5
[2020-04-02 13:14] LABS: ANA Symphony (Qualitative) Negative (Negative); ANA Symphony (Quantitative) 0.2 Ratio (< 0.7 Negative); dsDNA IgG Antibody 8.3 IU/mL (<10 Negative)
--- NOTE | 2020-04-02 17:10 | PRG ---
DATE OF SERVICE: 04/02/2020 SUBJECTIVE: Mr. Kauffman is seen at the bedside along with his . Reportedly, he is comfortable without any pain. He is tolerating most of his tray without nausea or vomiting. PHYSICAL EXAMINATION: VITAL SIGNS: Temperature 97.5, blood pressure 151/67, pulse of 53. GENERAL: He appears to be alert and somewhat cachectic, but in no distress. HEENT: Anicteric sclerae. CV: Normal S1, S2. Regular rate and rhythm. CHEST: Breath sounds. ABDOMEN: Soft and nontender. He has active bowel sounds. No distention. No tympany. EXTREMITIES: No edema. LABORATORY DATA: WBC is 5.6, hemoglobin 8.7, platelet count of 50,000. Sodium 141, potassium 2.8, chloride 113, CO2 of 16, creatinine 3.04, BUN of 59. ASSESSMENT: 1. Large ill-defined mass near the pancreas on CT, uncertain whether this is an abscess or tumor. 2. Anorexia, chronic weight loss. 3. Worsening renal function. The patient's family has elected to take him home with hospice care. RECOMMENDATION: No new recommendation. Daughter and along the patient have elected to be discharged to home on hospice. The and patient appears to understand the current situation. I made myself available for any questions and there was none. Job ID: [id number]
--- NOTE | 2020-04-02 19:42 | DIS ---
DATE OF ADMISSION: 03/27/2020 DATE OF DISCHARGE: 04/02/2020 PRIMARY CARE PHYSICIAN: Rui Alvarez MD REASON FOR ADMISSION: Chills with sepsis. DIAGNOSES AT DISCHARGE: 1. Sepsis, resolved. 2. Abdominal mass in the pancreas with gas present, likely tumor versus perforated ulcer with abscess. 3. Myocardial infarction, type 2. 4. Chronic kidney disease, stage 4. 5. Diabetes mellitus, type 2. 6. Hyperlipidemia. 7. Bradycardia with bigeminal rhythm. PROCEDURES: 1. CT scan of the abdomen and pelvis without contrast showing a large heterogeneous soft tissue density mass in the right upper quadrant and central abdomen. The pancreatic neoplasm is most likely. Possible involvement of the adjacent small bowel. 2. 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 3. Echocardiogram showing ejection fraction of 50% to 55% and diastolic dysfunction. 4. Nuclear medicine stress testing showing no ischemic change, but mild global hypokinesia with ejection fraction of 41%. 5. Modified barium swallow showing penetration with thin liquids and nectar thick consistencies, and premature spillage and pooling with all the aforementioned consistencies. CONSULTATIONS: 1. Cardiology, Dr. Roy. 2. Pulmonology, Dr. Savage. 3. Gastroenterology, Dr. Feliciano. 4. Infectious Disease, Dr. Mendez. 5. Nephrology, Dr. Werner. SUMMARY OF HOSPITAL COURSE: This is an 84-year-old male with a history of 45-wc-77-pound weight loss over the last year and a recent admission for possible urinary tract infection that never grew bacteria back. He presented to the hospital after he was playing cards with his friends and developed sudden episodes of tremors and generalized weakness and got very cold. He presented to the emergency room. There, he was found to have fever and tachycardia. He was treated for sepsis with broad-spectrum IV antibiotics after blood cultures were drawn. One of his two blood cultures did grow back some mixed bacteria that were very difficult to identify gram-negative horace and anaerobic cocci. Still no ID back on these, though a lot of things have been ruled out. All the typical organisms have been ruled out, possibly a contaminant. The patient did have a CT scan done of his abdomen, noncontrast, due to some chronic renal failure with acute worsening and this showed a large mass in the pancreatic head with some gas in it. Gastroenterology was consulted. He was determined to be too high risk at the time from his sepsis to do an EGD and was recommended once he was stabilized to be transferred to a tertiary care center, where they can do an endoscopic ultrasound. The patient also had an elevated troponin on admission, so Dr. Roy was consulted. He determined that this was a type 2 acute myocardial infarction from his sepsis. However, during his hospitalization, he did develop some mild bradycardia with bigeminal beats. Dr. Roy evaluated him further with an echo and a stress test showing a mild depressed ejection fraction on the stress test and some diastolic dysfunction on the echocardiogram, but no evidence for ischemic disease and he was cleared from a cardiac standpoint for further investigations. Dr. Mendez, Infectious Disease, was consulted and is managing his antibiotics, and Dr. Werner was consulted to manage his chronic renal disease, which worsened some with his IV antibiotics, which were adjusted for his creatinine clearance. The patient clinically feel better during the hospitalization, but still very weak. He did have some trouble swallowing. He had a modified barium swallow done with the above results and Speech Therapy adjusted his diet. At this point, we discussed with the patient and with his family about the need for transfer for further investigation and likelihood of this being a pancreatic cancer that was not completely typical for a pancreatic cancer. It could be a cancer from somewhere else that is invading the pancreas or even possibly a perforated ulcer with abscess formation into the pancreas. We did recommend transfer to a higher level facility after discussing with our general surgeon here who stated that they cannot do anything on the pancreas at our facility. The family discussed this among themselves, among the patient, his , and his daughter, and they determined they did not want him to be poked or prodded anymore. They did not want any further investigations or treatments and that he wanted to go home on hospice. The patient is now being discharged home with [facility]. DISCHARGE MANAGEMENT: Discharged home on hospice. ACTIVITY: As tolerated. DIET: Diabetic diet with puree texture solids, extra sauce and gravy, nectar thick liquids with small sips by cup and no straws. THERAPY: As per hospice equipment and supplies, to be provided by hospice. DISCHARGE MEDICATIONS: The patient is to continue with home medications plus Delfina CARPENTER 57611 units one cap 3 times a day with meals, 90 capsules dispensed. All other medication adjustments and additions will be taken care of by hospice. FOLLOWUP: With [facility] at home and with Dr. Rui Alvarez as needed. TIME SPENT: Arranging the details of this discharge took 32 minutes. Job ID: [id number]
[2020-04-02] MEDS ORDERED: Vancomycin HCl 250 MG in Sodium Chloride 0.9% 100 ML IVPB SCH (21:00)
== END 2020-04-02 16:30 | disposition hospice, home (50) | DRG 871 ==
LOC: ERS 17:41 → IMCU/EMU 20:07 → 2NO 03-31 14:28
PROVIDERS: ADMIT Internal Medicine; ATTEND Internal Medicine
PROC: 30233N1 Transfusion of Nonautologous Red Blood Cells into Peripheral Vein, Percutaneous Approach (ICD-10-PCS; principal; 2020-03-28)
DX: A41.9 Sepsis, unspecified organism (principal); I21.A1 Myocardial infarction type 2; K85.90 Acute pancreatitis without necrosis or infection, unspecified; N18.4 Chronic kidney disease, stage 4 (severe); N17.9 Acute kidney failure, unspecified; D61.818 Other pancytopenia; E87.2 Acidosis; R64 Cachexia; Z51.5 Encounter for palliative care; Z20.828 Contact with and (suspected) exposure to other viral communicable diseases; D49.0 Neoplasm of unspecified behavior of digestive system; E11.22 Type 2 diabetes mellitus with diabetic chronic kidney disease; E78.5 Hyperlipidemia, unspecified; E78.00 Pure hypercholesterolemia, unspecified; D63.1 Anemia in chronic kidney disease; I12.9 Hypertensive chronic kidney disease with stage 1 through stage 4 chronic kidney disease, or unspecified chronic kidney disease; E87.6 Hypokalemia; R63.0 Anorexia; I95.9 Hypotension, unspecified; Z79.899 Other long term (current) drug therapy; R13.10 Dysphagia, unspecified; R00.8 Other abnormalities of heart beat; I49.8 Other specified cardiac arrhythmias; Z68.20 Body mass index [BMI] 20.0-20.9, adult; Z90.49 Acquired absence of other specified parts of digestive tract; Z87.891 Personal history of nicotine dependence
CPT/HCPCS: 36415; 36416; 36430; 36600; 71045; 71250; 74176; 74177; 74230; 76705; 78452; 80048; 80053; 80202; 81003; 81015; 82150; 82378; 82533; 82550; 82787; 83605; 83690; 83735; 84484; 85025; 86038; 86225; 86301; 86850; 86900; 86901; 87040; 87086; 87149; 87324; 87449; 87635; 93005; 93010; 93017; 93306; 96365; 96367; A9500; J0696; J1644; J2543; J2785; J3370; J3475; J3480; J3490; J7050; J7070; P9016; P9047; Q5105; U0003